=== PATIENT | female | born 1980 | race Two or more races ===

== ENCOUNTER 2024-12-16 17:18 | Inpatient (IN) | payer MEDICAID, OTHER ==
[~2024-12-16] VITALS: Ht 152.4 cm; Wt 65.3 kg
--- NOTE | 2024-12-16 18:37 | DVH ---
INDICATION: cp TECHNIQUE: Frontal view of the chest. COMPARISON: None FINDINGS: Finding:. The heart and mediastinal contours are grossly unremarkable. There is no evidence of pleur al disease. The lungs are clear. The bony structures of the chest are intact without fracture. IMPRESSION: 1. No evidence of acute disease.
--- NOTE | 2024-12-16 18:59 | ED.PDOC ---
HPI Comments 44 y/o F, BIBA, with PMHx of HTN and hyperthyroidism presents to the ED for CC of chest pain. EMS reports, patient is coming from dialysis center where she complains of substernal chest pain onset, 1500 today (12/16/24). Patient states, chest pain to be non-radiating and pressure like in nature. Patient denies palpitations, shortness of breath, weakness, leg swelling, or headache. No other symptoms or modifying factors present at this time. Chief Complaint: Chest Pain Time Seen by MD: 18:20 Reviewed Notes: Nurses Notes, [employer] Worker Notes, Medications, Allergies Allergies: Coded Allergies: NO KNOWN ALLERGIES (Unverified , 12/16/24) Information Source: Patient, Emergency Med Personnel Mode of Arrival: EMS Severity: Moderate Timing: Hours Duration: Since onset Prehospital treatment: None Location: Substernal Radiation: No Radiation Quality: Pressure Onset: At Rest Cardiac Risk Factors: HTN, None PE Risk Factors: None History of: None Modifying Factors: Nothing Associated Signs and Symptoms: None Past Medical History PAST MEDICAL HISTORY: CKF, HTN, Thyroid Surgical History: Denies all surgeries CASHIER ASSOCIATE History: Denies all CASHIER ASSOCIATE Hx Family History Family History: Unknown Social History Smoker: Non-Smoker Alcohol: Denies ETOH Use Drugs: Denies Drug Use Lives In: Home Constitutional: denies: chills, diaphoresis, fatigue, fever, malaise, sweats, weakness, others EENTM: denies: blurred vision, double vision, ear bleeding, ear discharge, ear drainage, ear pain, ear ringing, eye pain, eye redness, hearing loss, mouth pain, mouth swelling, nasal discharge, nose bleeding, nose congestion, nose pain, photophobia, tearing, throat pain, throat swelling, voice changes, others Respiratory: denies: cough, hemoptysis, orthopnea, SOB at rest, shortness of breath, SOB with excertion, stridor, wheezing, others Cardiovascular: reports: chest pain; denies: dizzy spells, diaphoresis, Dyspnea on exertion, edema, irregular heart beat, left arm pain, lightheadedness, palpitations, PND, syncope, others Gastrointestinal: denies: abdomen distended, abdominal pain, blood streaked bowels, constipated, diarrhea, dysphagia, difficulty swallowing, hematemesis, melena, nausea, poor appetite, poor fluid intake, rectal bleeding, rectal pain, vomiting, others Genitourinary: denies: abnormal vagina bleeding, burning, dyspareunia, dysuria, flank pain, frequency, hematuria, incontinence, pain, , vagina discharge, urgency, others Neurological: denies: dizziness, fainting, headache, left sided numbness, left sided weakness, numbness, paresthesia, pre-existing deficit, right sided numbness, right sided weakness, seizure, speech problems, tingling, tremors, weakness, others Musculoskeletal: denies: back pain, gout, joint pain, joint swelling, muscle pain, muscle stiffness, neck pain, others Integumetry: denies: bruises, change in color, change in hair/nails, dryness, laceration, lesions, lumps, rash, wounds, others Allergic/Immunocompromised: denies: Difficulty Healing, Frequent Infections, Hives, Itching, others Hematologic/Lymphatic: denies: anemia, blood clots, easy bleeding, easy bruising, swollen glands, others Endocrine: denies: excessive hunger, excessive sweating, excessive thirst, excessive urination, flushing, intolerance to cold, intolerance to heat, unexplained weight gain, unexplained weight loss, others Psychiatric: denies: anxiety, bipolar disorder, depression, hopeless, panic disorder, schizophrenia, sleepless, suicidal, others All Other Systems: Reviewed and Negative Physical Exam General Appearance: No Apparent Distress, Normal HEENT: Normal ENT Inspection, Pharynx Normal Neck: Full Range of Motion, Non-Tender, Normal, Normal Inspection Respiratory: Chest Non-Tender, Lungs Clear, No Accessory Muscle Use, No Respiratory Distress, Normal Breath Sounds Cardiovascular: No Edema, No Murmur, No Gallop, Normal Peripheral Pulses, Regular Rate/Rhythm Breast Exam: Deferred Gastrointestinal: No Organomegaly, Non Tender, No Pulsatile Mass, Normal Bowel Sounds, Soft Genitalia: Deferred Pelvic: Deferred Rectal: Deferred Extremities: No calf tenderness, Normal capillary refill, Normal inspection, Normal range of motion, Non-tender, No pedal edema Musculoskeletal : Apperance: Normal Neurologic: Alert, body bumper II-XII nml as Tested, No Motor Deficits, Normal Affect, Normal Mood, No Sensory Deficits Cerebellar Function: Normal Reflexes: Normal Skin: Dry, Normal Color, Warm Lymphatic: No Adenopathy Was a procedure done? Was a procedure done?: No CP Differential Dx Differential Diagnosis: Angina, Anxiety / Panic Attack, MS Differential Diagnosis: HTN Essential, HTN Accelerated Differential Diagnosis: Angina, Aortic dissection, Chest Wall Pain, Costochondritis, Esophageal reflux/spasm, Gastritis, Myocardial Infarction, Pericarditis, Pneumonia, Pneumothorax, Pulmonary Embolus X-Ray, Labs, Meds, VS Vital Signs Date Time Temp Pulse Resp B/P (MAP) Pulse Ox O2 Delivery O2 Flow Rate FiO2 12/16/24 20:18 98.7 76 16 162/86 (111) 99 98.7 12/16/24 18:40 70 12/16/24 17:20 77 12/16/24 17:20 98.6 76 16 152/94 (113) 98 98.6 Lab Test 12/16/24 18:21 12/16/24 17:30 Range/Units Troponin I High Sensitivity 43 *H 43 *H </=34 ng/L White Blood Count 8.0 4.4-10.8 10^3/uL Red Blood Count 3.41 L 4.0-5.20 10^6/uL Hemoglobin 11.4 L 12.2-16.2 g/dL Hematocrit 32.9 L 36.0-46.0 % Mean Corpuscular Volume 96.5 80.0-100.0 fL Mean Corpuscular Hemoglobin 33.4 H 28.0-32.0 pg Mean Corpuscular Hemoglobin Concent 34.6 32.0-36.0 g/dL Red Cell Distribution Width 13.7 11.8-14.3 % Platelet Count 229 140-450 10^3/uL Mean Platelet Volume 9.7 6.9-10.8 fL Neutrophils (%) (Auto) 69.7 37.0-80.0 % Lymphocytes (%) (Auto) 22.0 10.0-50.0 % Monocytes (%) (Auto) 5.7 0.0-12.0 % Eosinophils (%) (Auto) 2.0 0.0-7.0 % Basophils (%) (Auto) 0.6 0.0-2.0 % Neutrophils # (Auto) 5.6 1.6-8.6 10 ^3/uL Lymphocytes # (Auto) 1.8 0.4-5.4 10 ^3/uL Monocytes # (Auto) 0.5 0-1.3 10 ^3/uL Eosinophils # (Auto) 0.2 0-0.8 10 ^3/uL Basophils # (Auto) 0.1 0-0.2 10 ^3/uL Nucleated Red Blood Cells 0.2 % Sodium Level 138 136-145 mmol/L Potassium Level 3.7 3.5-5.1 mmol/L Chloride Level 100 98-107 mmol/L Carbon Dioxide Level 28 20-31 mmol/L Anion Gap 10 5-15 Blood Urea Nitrogen 28 H 9-23 mg/dL Creatinine 4.65 H 0.550-1.02 mg/dL Glomerular Filtration Rate Calc 11 >90 mL/min BUN/Creatinine Ratio 6.0 L 10.0-20.0 Serum Glucose 111 H 74-106 mg/dL Calcium Level 9.2 8.7-10.4 mg/dL [place] [id number] Ph: [phone] DIAGNOSTIC IMAGING Diagnostic Imaging Report : [id number] Signed PATIENT: ANY CUEVAS ACCT: [id number] UNIT: [id number] : 1980 LOC: ER ROOM / BED: / AGE / SEX: 44 / F ADM STATUS: REG ER SERVICE 11 ORDERING PHYSICIAN: ALEX JUAN MD PROCEDURE(s): CXRP - CHEST PORTABLE REASON: cp ORDER NUMBER(s): [id number], ACCESSION NUMBER(s): [id number] INDICATION: cp TECHNIQUE: Frontal view of the chest. COMPARISON: None FINDINGS: Finding:. The heart and mediastinal contours are grossly unremarkable. There is no evidence of pleural disease. The lungs are clear. The bony structures of the chest are intact without fracture. IMPRESSION: 1. No evidence of acute disease. ATED BY: SELVIN ORTEGA MD DICTATED DATE/TIME: 12/16/241833 SIGNED BY: SELVIN ORTEGA MD SIGNED DATE/TIME: 12/16/241833 CC: Time of 1ST Reevaluation: 18:50 Reevaluation 1ST: Unchanged Time of 2ND Reevaluation: 20:31 Reevaluation 2ND: Improved Patient Education/Counseling: Diagnosis, Treatment, Prognosis, Need For Follow Up Family Education/Counseling: No Family Present Additional Information The following tests were ordered, and results were reviewed by me: EKG X3, TROPONIN X3, CBC, BMP I discussed treatment and results with medical personnel and: patient Comprehensive systems review obtained and negative except for what is stated in the HPI. pt does not have a doctor nor insurance to follow up. her symptoms are concerning for unstable angina. i will admit her for further evaluation and treatments Departure 1 Departure Time of Disposition: 20:33 Impression: Primary Impression: Unstable angina Disposition: ADMITTED INPATIENT Admit to: Tele Condition: Serious Discharged With: Self Critical Care Note Critical Care Time?: Yes (55 min-critical care time only) Critical care comment: due to concerns for patient's condition deteriorating, the care required my highest level of attention and readiness to intervene. i assessed the patient's condition, ordered the proper tests and treatments, reassessed for response and reviewed the results. i communicated with medical personnel and formulated a p cleve of care. total critical care time does not include any procedures Stability Stability form required: No Heart Score Heart Score: Heart Score Response (Comments) Value History Moderate Suspicious 1 EKG Repolarization Disturb 1 Age <45 0 Risk Factors 1 or 2 risk factors 1 Troponin 1-2 x's Normal limit 1 Total 4 I personally scribed for ALEX JUAN MD ([email or web address]) on 12/16/24 at 18:59. Electronically submitted by Celia Astorga ([email or web address]). I personally scribed for ALEX JUAN MD ([email or web address]) on 12/16/24 at 19:16. Electronically submitted by Celia Astorga ([email or web address]). ALEX JUAN MD December 16, 2024 18:59
[2024-12-16 19:21] LABS: Basophils # (auto) 0.1 10 ^3/uL (0-0.2); Basophils % (auto) 0.6 % (0.0-2.0); Eosinophils # (auto) 0.2 10 ^3/uL (0-0.8); Hematocrit 32.9 % (36.0-46.0); Hemoglobin 11.4 g/dL (12.2-16.2); Lymphocytes # (auto) 1.8 10 ^3/uL (0.4-5.4); Mean Corpuscular Hemoglobin 33.4 pg (28.0-32.0); Mean Corpuscular Hgb Conc. 34.6 g/dL (32.0-36.0); Mean Corpuscular Volume 96.5 fL (80.0-100.0); Monocytes # (auto) 0.5 10 ^3/uL (0-1.3); Monocytes % (auto) 5.7 % (0.0-12.0); Neutrophils # (auto) 5.6 10 ^3/uL (1.6-8.6); Neutrophils % (auto) 69.7 % (37.0-80.0); Nucleated Red Blood Cells % 0.2 %; Platelet Count (auto) 229 10^3/uL (140-450); Red Blood Cells 3.41 10^6/uL (4.0-5.20); Red Cell Distribution Width 13.7 % (11.8-14.3)
[2024-12-16 19:41] LABS: Chloride 100 mmol/L (98-107); Potassium 3.7 mmol/L (3.5-5.1); Sodium 138 mmol/L (136-145)
[2024-12-16 19:42] LABS: Anion Gap 10 (5-15); Calcium 9.2 mg/dL (8.7-10.4); Carbon Dioxide 28 mmol/L (20-31)
[2024-12-16 19:48] LABS: Blood Urea Nitrogen 28 mg/dL (9-23); Glucose 111 mg/dL (74-106)
[2024-12-16] MEDS ORDERED: NITROGLYCERIN 0.4 MG SL TAB SL PRN (20:45)
[2024-12-16] MEDS ORDERED: cloNIDine HCL 0.1 MG TAB PO PRN (21:15)
--- NOTE | 2024-12-16 21:58 | DVHHP2 ---
History of Present Illness Reason for Visit: Chest pain History of Present Illness 44-year-old female presents for evaluation of chest pain. Patient reports developing substernal pressure-like chest pain with mild shortness for breath while undergoing dialysis today. Denies nausea or vomiting. No cough or fever. No other acute complaints. Past Medical History Hypertension, chronic kidney disease, thyroid Past Surgical History Dialysis access Family History Noncontributory Smoke: No ALCOHOL: none Drugs: None Lives: with Family Review of Systems Review of Systems Review of systems are currently negative otherwise addressed in HPI. Allergies: Coded Allergies: NO KNOWN ALLERGIES (Unverified , 12/16/24) Medications Current Medications Medications Dose Ordered Sig/Tere Route Start Time Stop Time Status Last Admin Dose Admin Nitroglycerin 0.4 mg Q5MINP PRN SL 12/16/24 20:45 Morphine Sulfate 2 mg Q30M PRN IV 12/16/24 20:45 Sevelamer HCl 800 mg TIDWM PO 12/17/24 08:00 Amlodipine Besylate 10 mg DAILY PO 12/17/24 10:00 Aspirin 81 mg DAILY PO 12/17/24 10:00 Atorvastatin Calcium 10 mg HS PO 12/16/24 22:00 Clonidine HCl 0.1 mg Q6HP PRN PO 12/16/24 21:15 Ondansetron HCl 4 mg Q4HP PRN IV 12/16/24 21:15 Acetaminophen 650 mg Q6HP PRN PO 12/16/24 21:15 Exam Vital Signs Vital Signs Date Time Temp Pulse Resp B/P (MAP) Pulse Ox O2 Delivery O2 Flow Rate FiO2 12/16/24 20:18 98.7 76 16 162/86 (111) 99 98.7 Exam Gen: 44-year-old female in no apparent distress. Skin: Warm, dry, normal color and texture, no rash. HEENT: Normocephalic atraumatic, mucous membranes moist and pink. Neck: Cervical and supraclavicular nodes normal without enlargement, trachea is midline, thyroid gland is normal without masses. Pulmonary: Clear to auscultation and percussion bilaterally. Cardiac: Regular rate and rhythm. No murmur Abdomen: Soft, nontender, nondistended, bowel sounds present all 4 quadrants, no guarding, no rigidity, no organomegaly. Extremities: No cyanosis, clubbing, no edema Neuro: Cranial nerves II through XII grossly intact, normal affect and speech, no focal motor deficits. Labs/Xrays ORDERING PHYSICIAN: ALEX JUAN MD PROCEDURE(s): CXRP - CHEST PORTABLE REASON: cp ORDER NUMBER(s): [id number], ACCESSION NUMBER(s): [id number] INDICATION: cp TECHNIQUE: Frontal view of the chest. COMPARISON: None FINDINGS: Finding:. The heart and mediastinal contours are grossly unremarkable. There is no evidence of pleural disease. The lungs are clear. The bony structures of the chest are intact without fracture. IMPRESSION: 1. No evidence of acute disease. Labs Test 12/16/24 18:21 12/16/24 17:30 Range/Units Troponin I High Sensitivity 43 *H </=34 ng/L White Blood Count 8.0 4.4-10.8 10^3/uL Red Blood Count 3.41 L 4.0-5.20 10^6/uL Hemoglobin 11.4 L 12.2-16.2 g/dL Hematocrit 32.9 L 36.0-46.0 % Mean Corpuscular Volume 96.5 80.0-100.0 fL Mean Corpuscular Hemoglobin 33.4 H 28.0-32.0 pg Mean Corpuscular Hemoglobin Concent 34.6 32.0-36.0 g/dL Red Cell Distribution Width 13.7 11.8-14.3 % Platelet Count 229 140-450 10^3/uL Mean Platelet Volume 9.7 6.9-10.8 fL Neutrophils (%) (Auto) 69.7 37.0-80.0 % Lymphocytes (%) (Auto) 22.0 10.0-50.0 % Monocytes (%) (Auto) 5.7 0.0-12.0 % Eosinophils (%) (Auto) 2.0 0.0-7.0 % Basophils (%) (Auto) 0.6 0.0-2.0 % Neutrophils # (Auto) 5.6 1.6-8.6 10 ^3/uL Lymphocytes # (Auto) 1.8 0.4-5.4 10 ^3/uL Monocytes # (Auto) 0.5 0-1.3 10 ^3/uL Eosinophils # (Auto) 0.2 0-0.8 10 ^3/uL Basophils # (Auto) 0.1 0-0.2 10 ^3/uL Nucleated Red Blood Cells 0.2 % Sodium Level 138 136-145 mmol/L Potassium Level 3.7 3.5-5.1 mmol/L Chloride Level 100 98-107 mmol/L Carbon Dioxide Level 28 20-31 mmol/L Anion Gap 10 5-15 Blood Urea Nitrogen 28 H 9-23 mg/dL Creatinine 4.65 H 0.550-1.02 mg/dL Glomerular Filtration Rate Calc 11 >90 mL/min BUN/Creatinine Ratio 6.0 L 10.0-20.0 Serum Glucose 111 H 74-106 mg/dL Calcium Level 9.2 8.7-10.4 mg/dL Thyroid Stimulating Hormone (TSH) 5.65 H 0.55-4.78 uIU/mL Assessment/Plan Assessment/Plan Assessment Chest pain rule out ACS Elevated troponin End-stage renal disease, dialysis dependent Hypothyroid Plan Admit the patient to telemetry to the hospitalist Nephrology consult Cardiology consult Thyroid panel pending Resume home medications Continue treatment per orders. Plan discussed with: Patient My Orders Orders - PARTHA MENDOZA Procedure Category Date Status Time Admit ADMIT 12/16/24 Transmitted 20:37 Nitroglycerin PHA 12/16/24 In Process Sublingual (Ntrostat 20:45 Morphine Sulfate PHA 12/16/24 In Process Injection 20:45 Stat Ekg For Chest GABRIELA 12/16/24 In Process Pain 20:37 Notify Of Changes GABRIELA 12/16/24 In Process From Base 20:37 Title Closer For GABRIELA 12/16/24 In Process 24 Hours 20:37 Emergency Dysrhythmia GABRIELA 12/16/24 In Process Protocol 20:37 Rhythm Strips Once GABRIELA 12/16/24 In Process Every Shift 20:37 Oxygen By Nasal RT 12/16/24 Transmitted Cannula 20:37 *[facility] CONS 12/16/24 Transmitted -[place] 21:04 Sevelamer (Renagel) PHA 12/17/24 In Process 08:00 Amlodipine Tablet PHA 12/17/24 In Process (Norvasc Tablet) 10:00 Basic Metabolic Panel LAB 12/17/24 Verified 04:00 * Cardiology Consult CONS 12/16/24 Transmitted 21:04 Aspirin Tablet PHA 12/17/24 In Process 10:00 Atorvastatin (Lipitor) PHA 12/16/24 In Process 22:00 Clonidine Hcl Tablet PHA 12/16/24 In Process (Catapres Tablet) 21:15 Renal DIET 12/17/24 Transmitted Standard(2gna,3gk,Lopho) Breakfast Ondansetron Hcl PHA 12/16/24 In Process (Zofran) 21:15 Echo 2d Mode Cardiac US 12/16/24 Logged DOP 21:04 Condition: Fair GABRIELA 12/16/24 In Process 21:04 Acetaminophen Tablet PHA 12/16/24 In Process (Tylenol Tablet) 21:15 Bedrest With Bathroom GABRIELA 12/16/24 In Process Privileg 21:04 Date of Service: December 16, 2024 Billing Provider: PATRHA MENDOZA Common Visit Codes: [id number] INP/OBS CARE (HIGH) PARTHA MENDOZA December 16, 2024 21:58
[2024-12-16 22:25] VITALS: PULSE 74; RESP 16; O2SAT 97
[2024-12-16 22:45] VITALS: BP 134/66; PULSE 70; RESP 16; TEMP 98; O2SAT 99
[2024-12-16 22:48] LABS: LDL Cholesterol 78 mg/dL (< 100)
[2024-12-16 22:49] LABS: Cholesterol 162 mg/dL (< 200); HDL Cholesterol 59 mg/dL (40-59)
[2024-12-16 22:53] LABS: Triglycerides 271 mg/dL (< 150)
[2024-12-16] MEDS ORDERED: LEVO25TA2 PO (23:16)
[2024-12-16] MEDS ORDERED: SEVE800T8 PO (23:22)
[2024-12-16] MEDS ORDERED: FERR1TAB17 PO (23:22)
[2024-12-16] MEDS: ATORVASTATIN 20 MG TAB PO SCH (23:23)
[2024-12-16] MEDS ORDERED: METO50CA PO (23:23)
[2024-12-17] VITALS (7 sets, daily range): BP systolic 109–151; BP diastolic 60–84; PULSE 70–76; RESP 16–20; TEMP 97.1–98.6; O2SAT 95–100
[2024-12-17] MEDS: LEVOTHYROXINE SODIUM 50 MCG TAB PO SCH (06:07)
[2024-12-17 06:39] LABS: Anion Gap 12 (5-15); Carbon Dioxide 27 mmol/L (20-31); Chloride 100 mmol/L (98-107); Potassium 4.3 mmol/L (3.5-5.1); Sodium 139 mmol/L (136-145)
[2024-12-17 06:45] LABS: BUN/Creatinine Ratio 5.1 (10.0-20.0); Glucose 84 mg/dL (74-106)
[2024-12-17 06:54] LABS: Blood Urea Nitrogen 34 mg/dL (9-23); Calcium 8.7 mg/dL (8.7-10.4)
[2024-12-17] MEDS: SEVELAMER 800 MG TAB PO SCH (08:29)
[2024-12-17] MEDS: ASPirin 81 mg TAB PO SCH (09:27)
[2024-12-17] MEDS: amLODIPine BESYLATE 5 MG TAB PO SCH (09:29)
--- NOTE | 2024-12-17 10:18 | DVHINCON2 ---
Date of service: December 17, 2024 Referring Physician Luis Chou, nurse practitioner Reason for Consultation End-stage renal disease to manage hemodialysis History of Present Illness Patient is a 44-year-old female with past medical history of end-stage renal disease on hemodialysis every Monday and Monday, hypertension and hypothyroidism who was admitted from the dialysis center on Monday for chest pain. On admission Nephrology is consulted to manage her hemodialysis Past Medical History End-stage renal disease, hypertension, hypothyroidism Past Surgical History Left upper arm AV fistula Allergies: Coded Allergies: NO KNOWN ALLERGIES (Unverified , 12/16/24) Home Meds Reported Medications Metoprolol Succinate (Kapspargo Sprinkle) 50 Mg Cap, 50 MG PO, CAP 12/16/24 Ferric Citrate (Auryxia) 210 Mg Tab, 210 MG PO, TAB 12/16/24 Sevelamer Carbonate (Renvela) 800 Mg Tab, 800 MG PO, TAB 12/16/24 Levothyroxine Sodium (Synthroid) 25 Mcg Tab, 10 TAB PO DAILY, #30 TAB 5 Refills 12/16/24 Current Medications Current Medications Medications (Trade) Dose Ordered Sig/Tere Route PRN Reason Start Time Stop Time Status Last Admin Nitroglycerin (Ntrostat Sublingual) 0.4 mg Q5MINP PRN SL FOR CHEST PAIN 12/16/24 20:45 Morphine Sulfate 2 mg Q30M PRN IV FOR CHEST PAIN 12/16/24 20:45 Sevelamer HCl (Renagel) 800 mg TIDWM PO 12/17/24 08:00 12/17/24 08:29 Amlodipine Besylate (Norvasc Tablet) 10 mg DAILY PO 12/17/24 10:00 12/17/24 09:29 Aspirin 81 mg DAILY PO 12/17/24 10:00 12/17/24 09:27 Atorvastatin Calcium (Lipitor) 10 mg HS PO 12/16/24 22:00 12/16/24 23:23 Clonidine HCl (Catapres Tablet) 0.1 mg Q6HP PRN PO SBP>160 12/16/24 21:15 Ondansetron HCl (Zofran) 4 mg Q4HP PRN IV NAUSEA / VOMITING 12/16/24 21:15 Acetaminophen (Tylenol Tablet) 650 mg Q6HP PRN PO PAIN SCALE 1-3 OR TEMP>100.4 12/16/24 21:15 Levothyroxine Sodium (Synthroid Tablet) 50 mcg QAM@0600 PO 12/17/24 06:00 12/17/24 06:07 Family History: Hypertension G8 MOTHER H&P Exam Vital Signs/I&O Vital Sign Date Time Temp Pulse Resp B/P (MAP) Pulse Ox O2 Delivery O2 Flow Rate FiO2 12/17/24 09:29 133/74 12/17/24 05:00 98.0 70 17 98 98.0 12/16/24 22:45 Room Air* 0 21 Intake and Output 12/16/24 12/17/24 19:00 07:00 Intake Total 100 ml Output Total 80 ml Balance 20 ml Intake Oral 100 ml Output Urine Total 80 ml Physical Exam Patient lying comfortably in bed Lungs clear to auscultation bilaterally Cardiac exam regular rate and rhythm GI soft nontender normal Extremities no clubbing cyanosis or edema Neuro nonfocal Labs/Diagnostic Data Labs/Diagnostic Data Laboratory Tests Test 12/17/24 04:39 12/16/24 18:21 12/16/24 17:30 Range/Units Sodium Level 139 138 136-145 mmol/L Potassium Level 4.3 3.7 3.5-5.1 mmol/L Chloride Level 100 100 98-107 mmol/L Carbon Dioxide Level 27 28 20-31 mmol/L Anion Gap 12 10 5-15 Blood Urea Nitrogen 34 H 28 H 9-23 mg/dL Creatinine 6.64 #H 4.65 H 0.550-1.02 mg/dL Glomerular Filtration Rate Calc 7 11 >90 mL/min BUN/Creatinine Ratio 5.1 L 6.0 L 10.0-20.0 Serum Glucose 84 111 H 74-106 mg/dL Calcium Level 8.7 9.2 8.7-10.4 mg/dL Troponin I High Sensitivity 43 *H 43 *H </=34 ng/L White Blood Count 8.0 4.4-10.8 10^3/uL Red Blood Count 3.41 L 4.0-5.20 10^6/uL Hemoglobin 11.4 L 12.2-16.2 g/dL Hematocrit 32.9 L 36.0-46.0 % Mean Corpuscular Volume 96.5 80.0-100.0 fL Mean Corpuscular Hemoglobin 33.4 H 28.0-32.0 pg Mean Corpuscular Hemoglobin Concent 34.6 32.0-36.0 g/dL Red Cell Distribution Width 13.7 11.8-14.3 % Platelet Count 229 140-450 10^3/uL Mean Platelet Volume 9.7 6.9-10.8 fL Neutrophils (%) (Auto) 69.7 37.0-80.0 % Lymphocytes (%) (Auto) 22.0 10.0-50.0 % Monocytes (%) (Auto) 5.7 0.0-12.0 % Eosinophils (%) (Auto) 2.0 0.0-7.0 % Basophils (%) (Auto) 0.6 0.0-2.0 % Neutrophils # (Auto) 5.6 1.6-8.6 10 ^3/uL Lymphocytes # (Auto) 1.8 0.4-5.4 10 ^3/uL Monocytes # (Auto) 0.5 0-1.3 10 ^3/uL Eosinophils # (Auto) 0.2 0-0.8 10 ^3/uL Basophils # (Auto) 0.1 0-0.2 10 ^3/uL Nucleated Red Blood Cells 0.2 % Triglycerides Level 271 H < 150 mg/dL Cholesterol Level 162 < 200 mg/dL LDL Cholesterol 78 < 100 mg/dL HDL Cholesterol 59 40-59 mg/dL Thyroid Stimulating Hormone (TSH) 5.65 H 0.55-4.78 uIU/mL Assessment End-stage renal disease on hemodialysis Chest pain rule out acute coronary syndrome Elevated troponin Hypertension Hypothyroidism Anemia of chronic kidney disease, well compensated Recommendations Hemodialysis tomorrow Resume home medications Renal diet Blood pressure control Cardiology consult We will continue to follow Patient seen and examined by myself in the emergency room. I discussed my plan of care with the patient and primary nurse at the bedside I would like to thank Luis for the consult, will follow up Plan discussed with: Patient KIM RHODES MD December 17, 2024 10:18
[2024-12-17 11:05] LABS: Magnesium 2.3 mg/dL (1.6-2.6)
[2024-12-17 11:06] LABS: Phosphorus 4.2 mg/dL (2.4-5.1)
--- NOTE | 2024-12-17 11:24 | DVHINCON2 ---
Date Seen: December 17, 2024 Referring Physician SHAGGY Chou Reason for Consultation Chest pain History of Present Illness This is a 44-year-old female patient who presents to the emergency room with chief complaint of chest pain that began on day of admission. Patient states that she was being dialyzed when suddenly she began to feel the chest pain. She describes it as unprovoked, constant, pressure-like in nature, midsternal and nonradiating. Associated symptoms include shortness of breath. Initial twelve lead electrocardiogram reveals normal sinus rhythm nonspecific ST segment changes to inferior leads and inferior Q-waves. Initial troponin level of 43ng/L. Significant past medical history includes hypertension, thyroid disease, and end-stage renal disease on hemodialysis. The patient denies any previous cardiac workup. Past Medical History Past medical history reviewed. No other significant than mentioned above. Past Surgical History Left arm fistula Hysterectomy Family History: Hypertension G8 MOTHER Family History Family history reviewed. Social History Denies the use of tobacco, alcohol or illicit drugs. Allergies: Coded Allergies: NO KNOWN ALLERGIES (Unverified , 12/16/24) Home Meds Reported Medications Metoprolol Succinate (Kapspargo Sprinkle) 50 Mg Cap, 50 MG PO, CAP 12/16/24 Ferric Citrate (Auryxia) 210 Mg Tab, 210 MG PO, TAB 12/16/24 Sevelamer Carbonate (Renvela) 800 Mg Tab, 800 MG PO, TAB 12/16/24 Levothyroxine Sodium (Synthroid) 25 Mcg Tab, 10 TAB PO DAILY, #30 TAB 5 Refills 12/16/24 Home Meds Home medications reviewed. Current Medications Current Medications Medications (Trade) Dose Ordered Sig/Tere Route PRN Reason Start Time Stop Time Status Last Admin Nitroglycerin (Ntrostat Sublingual) 0.4 mg Q5MINP PRN SL FOR CHEST PAIN 12/16/24 20:45 Morphine Sulfate 2 mg Q30M PRN IV FOR CHEST PAIN 12/16/24 20:45 Sevelamer HCl (Renagel) 800 mg TIDWM PO 12/17/24 08:00 12/17/24 08:29 Amlodipine Besylate (Norvasc Tablet) 10 mg DAILY PO 12/17/24 10:00 12/17/24 09:29 Aspirin 81 mg DAILY PO 12/17/24 10:00 12/17/24 09:27 Atorvastatin Calcium (Lipitor) 10 mg HS PO 12/16/24 22:00 12/16/24 23:23 Clonidine HCl (Catapres Tablet) 0.1 mg Q6HP PRN PO SBP>160 12/16/24 21:15 Ondansetron HCl (Zofran) 4 mg Q4HP PRN IV NAUSEA / VOMITING 12/16/24 21:15 Acetaminophen (Tylenol Tablet) 650 mg Q6HP PRN PO PAIN SCALE 1-3 OR TEMP>100.4 12/16/24 21:15 Levothyroxine Sodium (Synthroid Tablet) 50 mcg QAM@0600 PO 12/17/24 06:00 12/17/24 06:07 Review of Systems Constitutional: No symptom reported Ears, Nose, & Throat: No symptom reported Eyes: No symptom reported Neurological: No symptoms reported Pulmonary/Respiratory: Shortness of breath Cardiovascular: Chest pain Gastrointestinal: No symptom reported Genitourinary: No symptom reported Musculoskeletal: No symptom reported Skin: No symptom reported Psychiatric: No symptom reported Endocrine: No symptom reported Hematologic/Lymphatic: No symptom reported Vital Signs Vital Signs Date Time Temp Pulse Resp B/P (MAP) Pulse Ox O2 Delivery O2 Flow Rate FiO2 12/17/24 09:29 133/74 12/17/24 05:00 98.0 70 17 98 98.0 12/16/24 22:45 Room Air* 0 21 Physical Exam General Appearance: Cooperative. Well-developed. Well-nourished. No acute distress. Pulmonary/Respiratory: Clear, bilateral breaths sounds. Cardiovascular/Chest: Regular rate and rhythm. Peripheral Pulses: 2+ Radial (R). 2+ Radial (L). 2+ Pedal (R). 2+ Pedal (L) Abdominal Exam: Normal bowel sounds. Ankle Exam: Negative ankle edema Lower extremities: Negative lower extremity edema Neuro/Mental Status: A/OX4, coherent. Thoughts/Psych: Normal thought pattern. Appropriate mood and affect. Good judgme nt and insight. Appearance: No acute distress. Skin Exam: Normal inspection. Normal color. Warm and dry. Labs/Diagnostic Data Labs Test 12/17/24 04:39 12/16/24 18:21 12/16/24 17:30 Range/Units Sodium Level 139 136-145 mmol/L Potassium Level 4.3 3.5-5.1 mmol/L Chloride Level 100 98-107 mmol/L Carbon Dioxide Level 27 20-31 mmol/L Anion Gap 12 5-15 Blood Urea Nitrogen 34 H 9-23 mg/dL Creatinine 6.64 #H 0.550-1.02 mg/dL Glomerular Filtration Rate Calc 7 >90 mL/min BUN/Creatinine Ratio 5.1 L 10.0-20.0 Serum Glucose 84 74-106 mg/dL Calcium Level 8.7 8.7-10.4 mg/dL Phosphorus Level 4.2 2.4-5.1 mg/dL Magnesium Level 2.3 1.6-2.6 mg/dL Vitamin D 25-Hydroxy 39.5 30.0-100 ng/mL Thyroid Stimulating Hormone (TSH) 8.95 H 0.55-4.78 uIU/mL Free Thyroxine (T4) Calculated 0.88 L 0.89-1.76 ng/dL Parathyroid Hormone (Intact) 598.0 H 18.4-80.1 pg/mL Troponin I High Sensitivity 43 *H </=34 ng/L White Blood Count 8.0 4.4-10.8 10^3/uL Red Blood Count 3.41 L 4.0-5.20 10^6/uL Hemoglobin 11.4 L 12.2-16.2 g/dL Hematocrit 32.9 L 36.0-46.0 % Mean Corpuscular Volume 96.5 80.0-100.0 fL Mean Corpuscular Hemoglobin 33.4 H 28.0-32.0 pg Mean Corpuscular Hemoglobin Concent 34.6 32.0-36.0 g/dL Red Cell Distribution Width 13.7 11.8-14.3 % Platelet Count 229 140-450 10^3/uL Mean Platelet Volume 9.7 6.9-10.8 fL Neutrophils (%) (Auto) 69.7 37.0-80.0 % Lymphocytes (%) (Auto) 22.0 10.0-50.0 % Monocytes (%) (Auto) 5.7 0.0-12.0 % Eosinophils (%) (Auto) 2.0 0.0-7.0 % Basophils (%) (Auto) 0.6 0.0-2.0 % Neutrophils # (Auto) 5.6 1.6-8.6 10 ^3/uL Lymphocytes # (Auto) 1.8 0.4-5.4 10 ^3/uL Monocytes # (Auto) 0.5 0-1.3 10 ^3/uL Eosinophils # (Auto) 0.2 0-0.8 10 ^3/uL Basophils # (Auto) 0.1 0-0.2 10 ^3/uL Nucleated Red Blood Cells 0.2 % Triglycerides Level 271 H < 150 mg/dL Cholesterol Level 162 < 200 mg/dL LDL Cholesterol 78 < 100 mg/dL HDL Cholesterol 59 40-59 mg/dL Assessment Chest pain, rule out coronary ischemia Rule out structural heart disease Hypertension Hypertriglyceridemia, newly diagnosed Thyroid disease End-stage renal disease on hemodialysis Plan/Recommendation We will continue with the following plan/recommendations (Dr. Montemayor): * Transthoracic echocardiogram to evaluate cardiac function * Chest pain protocol * VIJAY score: 2 points * HEART score: 4 points * Single antiplatelet therapy and lipid-lowering agent * Close Cardiac surveillance * Nuclear stress test Thank you for allowing us to care for this patient. Please call with any questions or concerns. Critical care time spent: 41 minutes This medical document was created using an electronic medical record system with voice recognition software and computerized dictation system. Although this document has been carefully reviewed, there might still be some phonetic and typographical errors. Occasional wrong-word or ``sound-alike substitutions may have occurred due to the inherent limitations of voice recognition software. These areas are purely typographical due to imperfections of the software programs and do not reflect any compromise in the patient's medical care. Please read the chart carefully and recognize, using context, where these substitutions have occurred. Plan discussed with: Patient NYHA Physical activity limitations: NA Date of Service: December 17, 2024 Billing Provider: DUDLEY PEARCE Cardiology Common Codes: [id number] INP/OBS CARE (High) Cardiology Consultation Codes: [id number] CONSULT <45MIN DUDLEY PEARCE December 17, 2024 11:24
[2024-12-17] MEDS: ONDANSETRON HCL 4 MG/2 ML VIAL IV PRN (13:28)
[2024-12-17] MEDS: MORPHINE SULFATE INJ 2 MG/ml SYRG IV PRN (13:37)
--- NOTE | 2024-12-17 13:54 | DVHPN2 ---
Subjective 44-year-old female with a history of end-stage renal disease, hypertension, hypothyroidism came with a chief complaint of chest pain for about 1 day while she was having dialysis yesterday She is still having chest pain as if this morning, 2nd EKG was done shows no changes Troponin was slightly elevated at 43 x2 Changes from previous H/P or p: Changes Objective Vitals Vital Signs Date Time Temp Pulse Resp B/P (MAP) Pulse Ox O2 Delivery O2 Flow Rate FiO2 12/17/24 13:37 75 14 123/76 12/17/24 13:19 98.6 96 98.6 12/16/24 22:45 Room Air* 0 21 Intake/Output Intake and Output 12/17/24 07:00 Intake Total 100 ml Output Total 80 ml Balance 20 ml Intake Oral 100 ml Output Urine Total 80 ml General Appearance: Alert, Oriented X3, Cooperative, No acute distress Lungs: Clear to auscultation, Normal air movement Cardiovascular: Regular rate, Normal S1, Normal S2 Abdomen: Normal bowel sounds, Soft, No tenderness Extremities: No edema Medications Current Medications Medications Dose Ordered Sig/Tere Route Start Time Stop Time Status Last Admin Dose Admin Nitroglycerin 0.4 mg Q5MINP PRN SL 12/16/24 20:45 Morphine Sulfate 2 mg Q30M PRN IV 12/16/24 20:45 12/17/24 13:37 2 MG Sevelamer HCl 800 mg TIDWM PO 12/17/24 08:00 12/17/24 12:23 800 MG Amlodipine Besylate 10 mg DAILY PO 12/17/24 10:00 12/17/24 09:29 10 MG Aspirin 81 mg DAILY PO 12/17/24 10:00 12/17/24 09:27 81 MG Atorvastatin Calcium 10 mg HS PO 12/16/24 22:00 12/16/24 23:23 10 MG Clonidine HCl 0.1 mg Q6HP PRN PO 12/16/24 21:15 Ondansetron HCl 4 mg Q4HP PRN IV 12/16/24 21:15 12/17/24 13:28 4 MG Acetaminophen 650 mg Q6HP PRN PO 12/16/24 21:15 Levothyroxine Sodium 50 mcg QAM@0600 PO 12/17/24 06:00 12/17/24 06:07 50 MCG Laboratory Results Laboratory Tests 12/16/24 17:30 12/17/24 04:39 Chemistry Test 12/16/24 17:30 12/17/24 04:39 Calcium Level 9.2 mg/dL (8.7-10.4) 8.7 mg/dL (8.7-10.4) Magnesium Level 2.3 mg/dL (1.6-2.6) Phosphorus Level 4.2 mg/dL (2.4-5.1) Lipid panel Test 12/16/24 17:30 Cholesterol Level 162 mg/dL (< 200) HDL Cholesterol 59 mg/dL (40-59) Triglycerides Level 271 mg/dL (< 150) H HgA1c, TSH Test 12/16/24 17:30 12/17/24 04:39 Thyroid Stimulating Hormone (TSH) 5.65 uIU/mL (0.55-4.78) H 8.95 uIU/mL (0.55-4.78) H Assessment/Plan Assessment/Plan Chest pain rule out ACS End-stage renal disease on hemodialysis Hypothyroidism, uncontrolled Hypertension Hyperparathyroidism, secondary versus tertiary Plan Telemetry Aspirin Lipitor Nephrology consult for dialysis Continue levothyroxine Echocardiogram Cardiology consult Monitor closely The rest of the management will depend on the hospital course Plan discussed with: Patient Date of Service: December 17, 2024 Billing Provider: AYDEE SANTOS MD Common Visit Codes: [id number] INP/OBS CARE(HIGH) AYDEE SANTOS MD December 17, 2024 13:54
[2024-12-17] MEDS: ATORVASTATIN 20 MG TAB PO SCH (21:41)
[2024-12-18] VITALS (8 sets, daily range): BP systolic 117–144; BP diastolic 69–94; PULSE 72–88; RESP 18–20; TEMP 96.3–98.4; O2SAT 96–99
[2024-12-18 06:27] LABS: Anion Gap 12 (5-15); Carbon Dioxide 24 mmol/L (20-31); Chloride 102 mmol/L (98-107); Sodium 138 mmol/L (136-145)
[2024-12-18 06:32] LABS: BUN/Creatinine Ratio 5.6 (10.0-20.0); Glucose 88 mg/dL (74-106)
[2024-12-18 06:34] LABS: Blood Urea Nitrogen 51 mg/dL (9-23)
[2024-12-18] MEDS ORDERED: SODIUM CHL 0.9% 1000 ML BAG XX ONE (07:00)
[2024-12-18] MEDS: REGADENOSON 0.4 MG/5 ML SYRG IV ONE ×2 (08:07→08:19)
[2024-12-18 09:07] LABS: Free Thyroxine Index 1.8 (1.2-4.9); Thyroxine (T4) 8.4 ug/dL (4.5-12.0)
--- NOTE | 2024-12-18 11:04 | DVHPN2 ---
Progress Note Date Seen: December 18, 2024 Medical Necessity Reason Pt with a Central, PICC or Fol: No Subjective Patient reports: No new complaints Other Systems: Seen and examined by myself today in follow-up, patient examined hemodialysis, blood pressure stable Objective vital signs Vital Sign Date Time Temp Pulse Resp B/P (MAP) Pulse Ox O2 Delivery O2 Flow Rate FiO2 12/18/24 09:00 98.0 73 18 144/94 (111) 99 98.0 12/18/24 08:00 Room Air* 0 21 Total Intake and Output 12/17/24 12/17/24 12/18/24 15:00 23:00 07:00 Intake Total 700 ml Output Total 250 ml Balance 450 ml medications Current Medications Medications Dose Ordered Sig/Tere Route Start Time Stop Time Status Last Admin Dose Admin Nitroglycerin 0.4 mg Q5MINP PRN SL 12/16/24 20:45 Morphine Sulfate 2 mg Q30M PRN IV 12/16/24 20:45 12/17/24 13:37 2 MG Sevelamer HCl 800 mg TIDWM PO 12/17/24 08:00 12/18/24 08:02 800 MG Amlodipine Besylate 10 mg DAILY PO 12/17/24 10:00 12/17/24 09:29 10 MG Aspirin 81 mg DAILY PO 12/17/24 10:00 12/17/24 09:27 81 MG Clonidine HCl 0.1 mg Q6HP PRN PO 12/16/24 21:15 Ondansetron HCl 4 mg Q4HP PRN IV 12/16/24 21:15 12/17/24 13:28 4 MG Acetaminophen 650 mg Q6HP PRN PO 12/16/24 21:15 Levothyroxine Sodium 50 mcg QAM@0600 PO 12/17/24 06:00 12/18/24 05:08 50 MCG Atorvastatin Calcium 40 mg HS PO 12/17/24 22:00 12/17/24 21:41 40 MG laboratory and microbiology Laboratory Tests 12/18/24 05:15 12/16/24 17:30 Test 12/18/24 05:15 Range/Units Serum Glucose 88 74-106 mg/dL Problem List/Assessment/Plan Problem List/Assessment/Plan End-stage renal disease on hemodialysis Chest pain rule out acute coronary syndrome Elevated troponin Hypertension Hypothyroidism Anemia of chronic kidney disease, well compensated Secondary hyperparathyroidism Recommendations Continue with UF 2 L as tolerated Resume home medications Renal diet Blood pressure control Calcitriol 0.25 mcg p.o. q.day Cardiology consult We will continue to follow Plan discussed with: Patient KIM RHODES MD December 18, 2024 11:04
--- NOTE | 2024-12-18 12:04 | DVHSR ---
APPROVED REPORT Exam: Nuclear Stress Test BMI: 0 Stress Test Details HR Max Heart Rate (APMHR): 177.996922 bpm Target HR (85% APMHR): 150.067741 bpm BP ECG Stress ECG Conclusion anterior wall reversible ischemia lvef 58% abnormal study NM EXAM: Myocardial Perfusion REST/STRESS Imaging Protocol: Rest Tc-99m/Stress Tc-99m 2 days Resting Data Rest SPECT myocardial perfusion imaging was performed in supine position 60 minutes following the int ravenous injection of 15.2 mCi of Tc-99m Sestamibi. Time of rest injection: 15:46 Date: 12/17/2024 Time of rest imagin:46 Date: 12/17/2024 Administration Route: IV Administration Site: Left Arm Pharmacologic Stress Pharmacologic stress test was performed by injecting Regadenoson 0.4 mg IV push followed by the intra venous injection of 25.1 mCi of Tc-99m Sestamibi. Time of stress injection: 08:21 Date: 12/18/2024 Time of stress imagin:21 Date: 12/18/2024 Administration Route: IV Administration Site: Left Arm The images were gated to evaluate regional wall motion and calculate left ventricular ejection fracti on. Stress only was performed in the Supine position. Comments TWO DAY STUDY REST STUDY PERFORMED ON 12/17/2024 STRESS STUDY PERFORMED 12/18/2024 Nuclear Conclusion Nuclear Findings: positive for ischemia anterior wall reversible ischemia lvef 58% abnormal study
[2024-12-18] MEDS: CALCITRIOL 0.25 MCG CAP PO SCH (12:14)
--- NOTE | 2024-12-18 21:09 | DVHPN2 ---
Subjective Stress test was abnormal Changes from previous H/P or p: Changes Objective Vitals Vital Signs Date Time Temp Pulse Resp B/P (MAP) Pulse Ox O2 Delivery O2 Flow Rate FiO2 12/18/24 20:00 Room Air* 0 21 12/18/24 16:36 98.4 76 19 117/69 (85) 96 98.4 Intake/Output Intake and Output 12/18/24 07:00 Intake Total 700 ml Output Total 250 ml Balance 450 ml Intake Oral 700 ml Output Urine Total 250 ml General Appearance: Alert, Oriented X3, Cooperative, No acute distress Lungs: Clear to auscultation, Normal air movement Cardiovascular: Regular rate, Normal S1, Normal S2 Abdomen: Normal bowel sounds, Soft, No tenderness Extremities: No edema Medications Current Medications Medications Dose Ordered Sig/Tere Route Start Time Stop Time Status Last Admin Dose Admin Nitroglycerin 0.4 mg Q5MINP PRN SL 12/16/24 20:45 Morphine Sulfate 2 mg Q30M PRN IV 12/16/24 20:45 12/17/24 13:37 2 MG Sevelamer HCl 800 mg TIDWM PO 12/17/24 08:00 12/18/24 18:42 800 MG Amlodipine Besylate 10 mg DAILY PO 12/17/24 10:00 12/17/24 09:29 10 MG Aspirin 81 mg DAILY PO 12/17/24 10:00 12/17/24 09:27 81 MG Clonidine HCl 0.1 mg Q6HP PRN PO 12/16/24 21:15 Ondansetron HCl 4 mg Q4HP PRN IV 12/16/24 21:15 12/17/24 13:28 4 MG Acetaminophen 650 mg Q6HP PRN PO 12/16/24 21:15 Levothyroxine Sodium 50 mcg QAM@0600 PO 12/17/24 06:00 12/18/24 05:08 50 MCG Atorvastatin Calcium 40 mg HS PO 12/17/24 22:00 12/17/24 21:41 40 MG Calcitriol 0.5 mcg DAILY PO 12/18/24 11:15 12/18/24 12:14 0.5 MCG Laboratory Results Laboratory Tests 12/16/24 17:30 12/18/24 05:15 Chemistry Test 12/18/24 05:15 Calcium Level 9.0 mg/dL (8.7-10.4) Microbiology Microbiology Date/Time Source Procedure Growth Status 12/17/24 16:16 Nose MRSA Screen - Final Complete Assessment/Plan Assessment/Plan Chest pain rule out ACS End-stage renal disease on hemodialysis Hypothyroidism, uncontrolled Hypertension Hyperparathyroidism, secondary versus tertiary Plan Telemetry Aspirin Lipitor Nephrology consult for dialysis Continue levothyroxine Echocardiogram Cardiology consult Monitor closely The rest of the management will depend on the hospital course 12/18/24: Stress test was abnormal s/p HD Will need a heart cath Plan discussed with: Patient My Orders Orders - AYDEE SANTOS MD Procedure Category Date Status Time Renal DIET 12/18/24 Transmitted Standard(2gna,3gk,Lopho) Lunch Date of Service: December 18, 2024 Billing Provider: AYDEE SANTOS MD Common Visit Codes: [id number] INP/OBS CARE(HIGH) AYDEE SANTOS MD December 18, 2024 21:09
[2024-12-19] VITALS (8 sets, daily range): BP systolic 123–148; BP diastolic 77–89; PULSE 72–94; RESP 16–18; TEMP 97.3–98; O2SAT 91–98
[2024-12-19 07:36] LABS: Basophils # (auto) 0 10 ^3/uL (0-0.2); Basophils % (auto) 0.4 % (0.0-2.0); Eosinophils # (auto) 0.2 10 ^3/uL (0-0.8); Eosinophils % (auto) 2.4 % (0.0-7.0); Hematocrit 36.3 % (36.0-46.0); Hemoglobin 12.4 g/dL (12.2-16.2); Lymphocytes # (auto) 2.1 10 ^3/uL (0.4-5.4); Lymphocytes % (auto) 23.9 % (10.0-50.0); Mean Corpuscular Hemoglobin 33.1 pg (28.0-32.0); Mean Corpuscular Hgb Conc. 34.1 g/dL (32.0-36.0); Monocytes # (auto) 0.7 10 ^3/uL (0-1.3); Monocytes % (auto) 7.9 % (0.0-12.0); Neutrophils # (auto) 5.7 10 ^3/uL (1.6-8.6); Neutrophils % (auto) 65.4 % (37.0-80.0); Platelet Count (auto) 226 10^3/uL (140-450); Red Blood Cells 3.74 10^6/uL (4.0-5.20); Red Cell Distribution Width 13.6 % (11.8-14.3); White Blood Cell 8.8 10^3/uL (4.4-10.8)
[2024-12-19 07:54] LABS: INR 0.97 (0.9-1.15); Partial Thromboplastin Time 28.5 SEC (24.5-34.5); Prothrombin Time 10.3 sec (9.3-11.8)
[2024-12-19 08:02] LABS: Alanine Aminotransferase 10 U/L (7-40); Alkaline Phosphatase 94 U/L (46-116); Anion Gap 14 (5-15); BUN/Creatinine Ratio 5.4 (10.0-20.0); Calcium 9.6 mg/dL (8.7-10.4); Carbon Dioxide 29 mmol/L (20-31); Glucose 93 mg/dL (74-106); Magnesium 2.3 mg/dL (1.6-2.6); Potassium 4.9 mmol/L (3.5-5.1); Sodium 138 mmol/L (136-145)
[2024-12-19 08:03] LABS: Bilirubin, Total 0.3 mg/dL (0.2-1.0)
[2024-12-19 08:06] LABS: Albumin 4.9 g/dL (3.2-4.8); Aspartate Aminotransferase < 8 U/L (13-40); Blood Urea Nitrogen 38 mg/dL (9-23); Chloride 95 mmol/L (98-107)
[2024-12-19 08:23] LABS: Cholesterol 121 mg/dL (< 200); HDL Cholesterol 60 mg/dL (40-59); LDL Cholesterol 49 mg/dL (< 100); Triglycerides 78 mg/dL (< 150)
--- NOTE | 2024-12-19 09:15 | DVHPN2 ---
Progress Note Date Seen: December 19, 2024 Medical Necessity Reason Pt with a Central, PICC or Fol: No Subjective Patient reports: No new complaints Other Systems: Patient seen and examined by myself today in follow-up Objective vital signs Vital Sign Date Time Temp Pulse Resp B/P (MAP) Pulse Ox O2 Delivery O2 Flow Rate FiO2 12/19/24 05:00 97.5 77 17 131/82 (98) 91 97.5 12/18/24 20:00 Room Air* 0 21 Total Intake and Output 12/18/24 12/18/24 12/19/24 15:00 23:00 07:00 Intake Total 560 ml 200 ml Output Total 500 ml Balance 60 ml 200 ml medications Current Medications Medications Dose Ordered Sig/Tere Route Start Time Stop Time Status Last Admin Dose Admin Nitroglycerin 0.4 mg Q5MINP PRN SL 12/16/24 20:45 Morphine Sulfate 2 mg Q30M PRN IV 12/16/24 20:45 12/17/24 13:37 2 MG Sevelamer HCl 800 mg TIDWM PO 12/17/24 08:00 12/19/24 07:54 800 MG Amlodipine Besylate 10 mg DAILY PO 12/17/24 10:00 12/17/24 09:29 10 MG Aspirin 81 mg DAILY PO 12/17/24 10:00 12/17/24 09:27 81 MG Clonidine HCl 0.1 mg Q6HP PRN PO 12/16/24 21:15 Ondansetron HCl 4 mg Q4HP PRN IV 12/16/24 21:15 12/17/24 13:28 4 MG Acetaminophen 650 mg Q6HP PRN PO 12/16/24 21:15 Levothyroxine Sodium 50 mcg QAM@0600 PO 12/17/24 06:00 12/19/24 06:18 50 MCG Atorvastatin Calcium 40 mg HS PO 12/17/24 22:00 12/18/24 21:38 40 MG Calcitriol 0.5 mcg DAILY PO 12/18/24 11:15 12/18/24 12:14 0.5 MCG Examination: LUNGS:Normal, CVS:Normal, MSK:Normal laboratory and microbiology Laboratory Tests 12/19/24 06:32 Test 12/19/24 06:32 Range/Units Serum Glucose 93 74-106 mg/dL Microbiology Date/Time Source Procedure Growth Status 12/17/24 16:16 Nose MRSA Screen - Final Complete Problem List/Assessment/Plan Problem List/Assessment/Plan End-stage renal disease on hemodialysis Chest pain rule out acute coronary syndrome Elevated troponin Hypertension Hypothyroidism Anemia of chronic kidney disease, well compensated Secondary hyperparathyroidism Recommendations Hemodialysis tomorrow Resume home medications Renal diet Decrease amlodipine to 5 mg po q day Calcitriol 0.25 mcg p.o. q.day Cardiology workup in progress We will continue to follow Plan discussed with: Patient, Daughter My Orders My Orders Orders - KIM RHODES MD Procedure Category Date Status Time Calcitriol Capsule PHA 12/18/24 In Process (Rocaltrol Capsule) 11:15 KIM RHODES MD December 19, 2024 09:15
[2024-12-19] MEDS: amLODIPine BESYLATE 5 MG TAB PO SCH (09:55)
--- NOTE | 2024-12-19 10:10 | DVHPN2 ---
Subjective Stress test was abnormal She needs a heart catheterization tomorrow No chest pain Changes from previous H/P or p: Changes Objective Vitals Vital Signs Date Time Temp Pulse Resp B/P (MAP) Pulse Ox O2 Delivery O2 Flow Rate FiO2 12/19/24 09:55 138/89 12/19/24 09:00 97.3 80 16 96 97.3 12/18/24 20:00 Room Air* 0 21 Intake/Output Intake and Output 12/19/24 07:00 Intake Total 760 ml Output Total 500 ml Balance 260 ml Intake Oral 760 ml Output Urine Total 500 ml General Appearance: Alert, Oriented X3, Cooperative, No acute distress Lungs: Clear to auscultation, Normal air movement Cardiovascular: Regular rate, Normal S1, Normal S2 Abdomen: Normal bowel sounds, Soft, No tenderness Extremities: No edema Medications Current Medications Medications Dose Ordered Sig/Tere Route Start Time Stop Time Status Last Admin Dose Admin Nitroglycerin 0.4 mg Q5MINP PRN SL 12/16/24 20:45 Morphine Sulfate 2 mg Q30M PRN IV 12/16/24 20:45 12/17/24 13:37 2 MG Sevelamer HCl 800 mg TIDWM PO 12/17/24 08:00 12/19/24 07:54 800 MG Aspirin 81 mg DAILY PO 12/17/24 10:00 12/19/24 09:54 81 MG Clonidine HCl 0.1 mg Q6HP PRN PO 12/16/24 21:15 Ondansetron HCl 4 mg Q4HP PRN IV 12/16/24 21:15 12/17/24 13:28 4 MG Acetaminophen 650 mg Q6HP PRN PO 12/16/24 21:15 Levothyroxine Sodium 50 mcg QAM@0600 PO 12/17/24 06:00 12/19/24 06:18 50 MCG Atorvastatin Calcium 40 mg HS PO 12/17/24 22:00 12/18/24 21:38 40 MG Calcitriol 0.5 mcg DAILY PO 12/18/24 11:15 12/19/24 09:54 0.5 MCG Amlodipine Besylate 5 mg DAILY PO 12/19/24 09:15 12/19/24 09:55 5 MG Laboratory Results Laboratory Tests 12/19/24 06:32 Chemistry Test 12/19/24 06:32 Albumin 4.9 g/dL (3.2-4.8) H Calcium Level 9.6 mg/dL (8.7-10.4) Magnesium Level 2.3 mg/dL (1.6-2.6) Total Protein 8.0 g/dL (5.7-8.2) Coagulation Test 12/19/24 06:32 Prothrombin Time 10.3 sec (9.3-11.8) Prothrombin Time INR 0.97 (0.9-1.15) Activated Partial Thromboplast Time 28.5 SEC (24.5-34.5) Lipid panel Test 12/19/24 06:32 Cholesterol Level 121 mg/dL (< 200) HDL Cholesterol 60 mg/dL (40-59) H Triglycerides Level 78 mg/dL (< 150) LFT Test 12/19/24 06:32 Alanine Aminotransferase (ALT) 10 U/L (7-40) Alkaline Phosphatase 94 U/L (46-116) Aspartate Amino Transferase (AST) < 8 U/L (13-40) L Total Bilirubin 0.3 mg/dL (0.2-1.0) HgA1c, TSH Test 12/19/24 06:32 Thyroid Stimulating Hormone (TSH) 7.06 uIU/mL (0.55-4.78) H Microbiology Microbiology Date/Time Source Procedure Growth Status 12/17/24 16:16 Nose MRSA Screen - Final Complete Assessment/Plan Assessment/Plan Chest pain rule out ACS End-stage renal disease on hemodialysis Hypothyroidism, uncontrolled Hypertension Hyperparathyroidism, secondary versus tertiary Plan Telemetry Aspirin Lipitor Nephrology consult for dialysis Continue levothyroxine Echocardiogram Cardiology consult Monitor closely The rest of the management will depend on the hospital course 12/18/24: Stress test was abnormal s/p HD Will need a heart cath 12/19/2024: Abnormal stress test: Heart catheterization for tomorrow Hemodialysis as per Nephrology Monitor closely Plan discussed with: Patient My Orders Orders - AYDEE SANTOS MD Procedure Category Date Status Time Renal DIET 12/18/24 Transmitted Standard(2gna,3gk,Lopho) Lunch Date of Service: December 19, 2024 Billing Provider: AYDEE SANTOS MD Common Visit Codes: [id number] INP/OBS CARE(MOD) AYDEE SANTOS MD December 19, 2024 10:10
--- NOTE | 2024-12-19 10:22 | DVHPN2 ---
Consult Progress Note Subjective Other Systems: Patient in normal sinus rhythm on patient sitter. Denies any cardiac symptoms at time of assessment Objective vital signs Vital Sign Date Time Temp Pulse Resp B/P (MAP) Pulse Ox O2 Delivery O2 Flow Rate FiO2 12/19/24 09:55 138/89 12/19/24 09:00 97.3 80 16 96 97.3 12/18/24 20:00 Room Air* 0 21 Total Intake and Output 12/18/24 12/18/24 12/19/24 15:00 23:00 07:00 Intake Total 560 ml 200 ml Output Total 500 ml Balance 60 ml 200 ml medications Current Medications Medications Dose Ordered Sig/Tere Route Start Time Stop Time Status Last Admin Dose Admin Nitroglycerin 0.4 mg Q5MINP PRN SL 12/16/24 20:45 Morphine Sulfate 2 mg Q30M PRN IV 12/16/24 20:45 12/17/24 13:37 2 MG Sevelamer HCl 800 mg TIDWM PO 12/17/24 08:00 12/19/24 07:54 800 MG Aspirin 81 mg DAILY PO 12/17/24 10:00 12/19/24 09:54 81 MG Clonidine HCl 0.1 mg Q6HP PRN PO 12/16/24 21:15 Ondansetron HCl 4 mg Q4HP PRN IV 12/16/24 21:15 12/17/24 13:28 4 MG Acetaminophen 650 mg Q6HP PRN PO 12/16/24 21:15 Levothyroxine Sodium 50 mcg QAM@0600 PO 12/17/24 06:00 12/19/24 06:18 50 MCG Atorvastatin Calcium 40 mg HS PO 12/17/24 22:00 12/18/24 21:38 40 MG Calcitriol 0.5 mcg DAILY PO 12/18/24 11:15 12/19/24 09:54 0.5 MCG Amlodipine Besylate 5 mg DAILY PO 12/19/24 09:15 12/19/24 09:55 5 MG Examination: GENERAL:Normal, LUNGS:Normal, CVS:Normal, NEURO:Normal laboratory and microbiology Laboratory Tests 12/19/24 06:32 Test 12/19/24 06:32 Range/Units Serum Glucose 93 74-106 mg/dL Problem List/Assessment/Plan Problem List/Assessment/Plan Chest pain, rule out coronary artery disease Positive nuclear stress test Rule out structural heart disease Hypertension Hypertriglyceridemia, newly diagnosed Thyroid disease End-stage renal disease on hemodialysis Plan/Recommendations:(Dr. Montemayor): * Transthoracic echocardiogram to evaluate cardiac function * Chest pain protocol * VIJAY score: 2 points * HEART score: 4 points * Single antiplatelet therapy and lipid-lowering agent * Close Cardiac surveillance * Nuclear stress test: Positive * [facility] Nuclear stress test findings positive for ischemia. Patient may benefit from coronary angiogram with left heart catheterization. The procedure was discussed with the patient in full detail including risks and benefits. Risks include but are not limited to bleeding, contrast-induced nephropathy, stroke, and even . The patient understands and is agreeable to undergo the procedure. We will schedule the patient at soonest availability on 12/20/2024. The patient will need to undergo dialysis postprocedure. Thank you for allowing us to care for this patient. Please call with any questions or concerns. This medical document was created using an electronic medical record system with voice recognition software and computerized dictation system. Although this document has been carefully reviewed, there might still be some phonetic and typographical errors. Occasional wrong-word or ``sound-alike substitutions may have occurred due to the inherent limitations of voice recognition software. These areas are purely typographical due to imperfections of the software programs and do not reflect any compromise in the patient's medical care. Please read the chart carefully and recognize, using context, where these substitutions have occurred. Plan discussed with: Patient, Daughter, Other (Bedside RN) Date of Service: December 19, 2024 Billing Provider: DUDLEY PEARCE Common Visit Codes: [id number] INP/OBS CARE(HIGH) DUDLEY PEARCE December 19, 2024 10:22
[2024-12-19] MEDS: DOCUSATE SOD 100 MG CAP PO ONE (13:11)
[2024-12-19] MEDS: LACTULOSE 20Gm/30ML SOLN PO ONE (13:12)
--- NOTE | 2024-12-19 14:46 | ECG ---
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
[2024-12-19] MEDS: ACETAMINOPHEN 325 MG TAB PO PRN (15:41)
[2024-12-19] MEDS: DOCUSATE SOD 100 MG CAP PO SCH (21:34)
[2024-12-20] VITALS (14 sets, daily range): BP systolic 127–172; BP diastolic 75–91; PULSE 72–94; RESP 12–18; TEMP 97.4–98.5; O2SAT 95–99
[2024-12-20 06:36] LABS: Anion Gap 14 (5-15); Carbon Dioxide 26 mmol/L (20-31); Sodium 137 mmol/L (136-145)
[2024-12-20 06:37] LABS: Calcium 9.1 mg/dL (8.7-10.4)
[2024-12-20 06:41] LABS: Chloride 97 mmol/L (98-107); Potassium 5.2 mmol/L (3.5-5.1)
[2024-12-20 06:42] LABS: Glucose 93 mg/dL (74-106)
[2024-12-20 06:49] LABS: Basophils # (auto) 0 10 ^3/uL (0-0.2); Basophils % (auto) 0.3 % (0.0-2.0); Eosinophils # (auto) 0.2 10 ^3/uL (0-0.8); Eosinophils % (auto) 1.9 % (0.0-7.0); Hematocrit 32.2 % (36.0-46.0); Hemoglobin 11.1 g/dL (12.2-16.2); Lymphocytes # (auto) 2.3 10 ^3/uL (0.4-5.4); Lymphocytes % (auto) 26.7 % (10.0-50.0); Mean Corpuscular Hemoglobin 33.5 pg (28.0-32.0); Mean Corpuscular Hgb Conc. 34.5 g/dL (32.0-36.0); Monocytes # (auto) 0.6 10 ^3/uL (0-1.3); Monocytes % (auto) 6.7 % (0.0-12.0); Neutrophils # (auto) 5.6 10 ^3/uL (1.6-8.6); Neutrophils % (auto) 64.4 % (37.0-80.0); Platelet Count (auto) 201 10^3/uL (140-450); Red Blood Cells 3.32 10^6/uL (4.0-5.20); Red Cell Distribution Width 13.4 % (11.8-14.3); White Blood Cell 8.7 10^3/uL (4.4-10.8)
[2024-12-20 06:57] LABS: Blood Urea Nitrogen 58 mg/dL (9-23)
[2024-12-20] MEDS ORDERED: SODIUM CHL 0.9% 1000 ML BAG XX ONE (07:00)
--- NOTE | 2024-12-20 11:57 | DVHPN2 ---
Subjective No chest pain Scheduled for heart catheterization today and hemodialysis Changes from previous H/P or p: Changes Objective Vitals Vital Signs Date Time Temp Pulse Resp B/P (MAP) Pulse Ox O2 Delivery O2 Flow Rate FiO2 12/20/24 10:27 136/79 12/20/24 09:00 97.6 72 17 98 97.6 12/20/24 08:30 Room Air* 0 21 Intake/Output Intake and Output 12/20/24 07:00 Intake Total 1050 ml Balance 1050 ml Intake Oral 1050 ml # Voids 2 # Bowel Movements 2 General Appearance: Alert, Oriented X3, Cooperative, No acute distress Lungs: Clear to auscultation, Normal air movement Cardiovascular: Regular rate, Normal S1, Normal S2 Abdomen: Normal bowel sounds, Soft, No tenderness Extremities: No edema Medications Current Medications Medications Dose Ordered Sig/Tere Route Start Time Stop Time Status Last Admin Dose Admin Nitroglycerin 0.4 mg Q5MINP PRN SL 12/16/24 20:45 Morphine Sulfate 2 mg Q30M PRN IV 12/16/24 20:45 12/17/24 13:37 2 MG Sevelamer HCl 800 mg TIDWM PO 12/17/24 08:00 12/20/24 08:03 800 MG Aspirin 81 mg DAILY PO 12/17/24 10:00 12/19/24 09:54 81 MG Clonidine HCl 0.1 mg Q6HP PRN PO 12/16/24 21:15 Ondansetron HCl 4 mg Q4HP PRN IV 12/16/24 21:15 12/17/24 13:28 4 MG Acetaminophen 650 mg Q6HP PRN PO 12/16/24 21:15 12/19/24 15:41 650 MG Levothyroxine Sodium 50 mcg QAM@0600 PO 12/17/24 06:00 12/20/24 06:02 50 MCG Atorvastatin Calcium 40 mg HS PO 12/17/24 22:00 12/19/24 21:34 40 MG Calcitriol 0.5 mcg DAILY PO 12/18/24 11:15 12/19/24 09:54 0.5 MCG Amlodipine Besylate 5 mg DAILY PO 12/19/24 09:15 12/20/24 10:27 5 MG Docusate Sodium 100 mg BID PO 12/19/24 22:00 12/19/24 21:34 100 MG Laboratory Results Laboratory Tests 12/20/24 05:51 Chemistry Test 12/20/24 05:51 Calcium Level 9.1 mg/dL (8.7-10.4) Microbiology Microbiology Date/Time Source Procedure Growth Status 12/17/24 16:16 Nose MRSA Screen - Final Complete Assessment/Plan Assessment/Plan Chest pain rule out ACS End-stage renal disease on hemodialysis Hypothyroidism, uncontrolled Hypertension Hyperparathyroidism, secondary versus tertiary Plan Telemetry Aspirin Lipitor Nephrology consult for dialysis Continue levothyroxine Echocardiogram Cardiology consult Monitor closely The rest of the management will depend on the hospital course 12/18/24: Stress test was abnormal s/p HD Will need a heart cath 12/19/2024: Abnormal stress test: Heart catheterization for tomorrow Hemodialysis as per Nephrology Monitor closely 12/20/2024: Continue current management pending the heart catheterization today Hemodialysis after the heart catheterization Hyperkalemia: Hemodialysis today Monitor closely Plan discussed with: Patient My Orders Orders - AYDEE SANTOS MD Procedure Category Date Status Time Docusate Sodium PHA 12/19/24 In Process Capsule (Colace 22:00 Date of Service: December 20, 2024 Billing Provider: AYDEE SANTOS MD Common Visit Codes: [id number] INP/OBS CARE(HIGH) AYDEE SANTOS MD December 20, 2024 11:57
--- NOTE | 2024-12-20 12:16 | DVHSR ---
APPROVED REPORT EXAM: Two-dimensional and M-mode echocardiogram with Doppler and color Doppler. Blood Pressure: 128/72 mmHg INDICATION Chest Pain RISK FACTORS Height: 5'0", Weight: 138 DIMENSIONS LVDd4.9 (3.8-5.7cm)LA (2D)4.4 (1.9-4.0cm)Aortic Root3.3 (2.0-3.7cm) LVDs3.2 (2.5-4.0cm)LA (MM) (1.9-4.0cm)Aortic Cusp Exc1.9 (1.5-2.0cm) EF (%) 60.0 (55-70%)Rt. Atrium4.1 (1.9-4.0cm)Asc. Aorta cm IVSd1.1 (0.7-1.1cm)RV (D)3.6 (1.8-2.4cm) PWd1.2 (0.7-1.1cm) Mitral Valve MitralMitral Stenosis E wave1.03m/sMV Mean GR.mmHg A wave1.08m/sMV Peak GR.mmHg E/A ratio1.02D MVAcm2 DECEL [id number] 1/2 Timems Aortic Valve Aortic ValveAortic Stenosis V11.15m/Laxmi Mean GR.11mmHg V22.40m/Laxmi Peak GR.23mmHg LVOT Diameter1.9 (1.8-2.4cm)Doppler AVA1.36cm2 AI P 1/2 Vvki853.63ms Pulmonic Valve V21.41m/s Tricuspid Valve TR Velocity3.14m/s [id number] Conclusion Sinus rhythm. Concentric LVH. Biatrial enlargement. Aortic root enlargement. Valves are normal. Mild aortic sclerosis. EF of 60% with normal RV function. Mild to moderate AI. Mild mitral insufficiency. Mild tricuspid regurgitation. No pericardial effusion masses or
--- NOTE | 2024-12-20 12:25 | ECG ---
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
[2024-12-20] MEDS: IODIXANOL 320MG/ML 100ML BTL IV ONE (14:42)
[2024-12-20] MEDS: fentaNYL CITRATE 100 MCG/2 ML VL ONE (14:44)
[2024-12-20] MEDS: VERAPAMIL 2.5MG/ML INJ 2ML VIAL IV ONE (14:44)
[2024-12-20] MEDS: ANGIOMAX 250 MG VIAL IV ONE (14:44)
[2024-12-20] MEDS: SODIUM CHL 0.9% 50 ML ONE (14:45)
[2024-12-20] MEDS: MIDAZOLAM HCL 2MG/2ML 2ml VIAL (1mg/ml) ONE (14:45)
[2024-12-20] MEDS: LIDOCAINE 2%HCL (LOCAL ANESTH.) INJ 20ML MDV ONE (14:45)
[2024-12-20] MEDS: HEPARIN SODIUM (PORCINE) 5000 UNITS/ML 1ML VIAL ONE (14:47)
--- NOTE | 2024-12-20 15:27 | DVHOP2 ---
Operative Report - 2 Report Details Date: 12/20/24 Preop Diagnosis: CAD Postop Diagnosis: Normal coronaries Surgeon: Kiran Montemayor MD Anesthesiologist: Conscious sedation Anesthesia: Mac, Local Consent: The patient was informed of the risks and benefits of the procedure. These include but are not limited to complications of anesthesia, postoperative infection, incomplete relief of symptoms, recurrence of symptoms, damage to blood vessels, nerves and tendons, deep venous thrombosis, pulmonary embolism and possible need for repeat surgery in the future. Complications: No complications Findings: Normal coronaries Indications for Surgery: Chest pain Name of Procedure Performed Left heart catheterization bilateral cine coronary angiography. Left ventriculography. Procedure Details Procedure Details: Prior local anesthesia with 2% lidocaine to right wrist and full informed consent obtained patient was prepped and draped in usual fashion followed by placement of a six Bulgarian sheath into the right radial artery through which six Bulgarian Bienvenido catheters were used to cannulate both right and left coronary ostium. A Wilfrido catheter was used for ventriculography. No complications Hemodynamics: Aortic blood pressure was 110/70. End-diastolic pressure was 12. There was no gradient across the aortic valve on pullback. Coronary anatomy the RCA is a large vessel was codominant. It is normal in its proximal mid and distal segments. PDA and posterolateral branches are normal. Left main is large and normal. Left anterior descending is large and normal. Diagonals and septals are free of significant disease. Circumflex is large vessel. In his codominant. Very large posterolateral branches and marginals are noted. There are free of significant disease. Ventriculography in the WEBSTER projection shows an EF of about 40% with mild global hypokinesis. Impression: Normal left ventricular end-diastolic pressure at rest with mildly decreased left ventricular ejection fraction. Normal coronary arteries. Recommendations: Medical therapy is warranted. Continue risk factor modification Condition Good Disposition Still a Patient Date of Service: December 20, 2024 Billing Provider: KIRAN MONTEMAYOR Sr., MD Cardiology Common Codes: PROCEDURE ONLY Cardiology Procedure Codes: [id number]-QALB HEART CATH W/INTRA INJ KIRAN MONTEMAYOR Sr., MD December 20, 2024 15:27
--- NOTE | 2024-12-20 16:22 | DVHPN2 ---
Progress Note - Dictate Date Seen: December 20, 2024 Medical Necessity Reason Pt with a Central, PICC or Fol: No Subjective Patient not in her room during rounds vital signs Vital Sign Date Time Temp Pulse Resp B/P (MAP) Pulse Ox O2 Delivery O2 Flow Rate FiO2 12/20/24 15:53 84 12 154/91 (112) 98 12/20/24 13:10 97.4 97.4 12/20/24 08:30 Room Air* 0 21 Total Intake and Output 12/19/24 12/19/24 12/20/24 15:00 23:00 07:00 Intake Total 550 ml 500 ml Balance 550 ml 500 ml medications Current Medications Medications Dose Ordered Sig/Tere Route Start Time Stop Time Status Last Admin Dose Admin Nitroglycerin 0.4 mg Q5MINP PRN SL 12/16/24 20:45 Morphine Sulfate 2 mg Q30M PRN IV 12/16/24 20:45 12/17/24 13:37 2 MG Sevelamer HCl 800 mg TIDWM PO 12/17/24 08:00 12/20/24 08:03 800 MG Aspirin 81 mg DAILY PO 12/17/24 10:00 12/19/24 09:54 81 MG Clonidine HCl 0.1 mg Q6HP PRN PO 12/16/24 21:15 Ondansetron HCl 4 mg Q4HP PRN IV 12/16/24 21:15 12/17/24 13:28 4 MG Acetaminophen 650 mg Q6HP PRN PO 12/16/24 21:15 12/19/24 15:41 650 MG Levothyroxine Sodium 50 mcg QAM@0600 PO 12/17/24 06:00 12/20/24 06:02 50 MCG Atorvastatin Calcium 40 mg HS PO 12/17/24 22:00 12/19/24 21:34 40 MG Calcitriol 0.5 mcg DAILY PO 12/18/24 11:15 12/19/24 09:54 0.5 MCG Amlodipine Besylate 5 mg DAILY PO 12/19/24 09:15 12/20/24 10:27 5 MG Docusate Sodium 100 mg BID PO 12/19/24 22:00 12/19/24 21:34 100 MG objective Exam deferred as patient was not in her room. laboratory and microbiology Laboratory Tests 12/20/24 05:51 Test 12/20/24 05:51 Range/Units Serum Glucose 93 74-106 mg/dL Assessment/Plan End-stage renal disease on hemodialysis Chest pain rule out acute coronary syndrome Elevated troponin Hypertension Hypothyroidism Anemia of chronic kidney disease, well compensated Secondary hyperparathyroidism Recommendations Hemodialysis December 21 [facility] p.o. x1 this evening Dietary Evaluation Review Comments: Follow current Diet. Monitor PO intake to meet 75% of her needs. Expected Outcomes/Goals: gradual wt loss Plan discussed with: Other FAIZAN VANG MD December 20, 2024 16:22
[2024-12-20] MEDS: SODIUM ZIRCONIUM CYCL 10 GM PAK PO ONE (17:15)
[2024-12-20] MEDS ORDERED: LABETALOL HCL 20 MG/4 ML VL IV PRN (17:15)
[2024-12-20] MEDS: LABETALOL HCL 20 MG/4 ML VL IV ONE (17:24)
[2024-12-21] VITALS (8 sets, daily range): BP systolic 144–159; BP diastolic 84–93; PULSE 74–97; RESP 16–19; TEMP 97.9–99.1; O2SAT 97–100
[2024-12-21 07:36] LABS: Calcium 9.4 mg/dL (8.7-10.4)
[2024-12-21 07:37] LABS: Anion Gap 15 (5-15); Carbon Dioxide 23 mmol/L (20-31)
[2024-12-21 07:42] LABS: BUN/Creatinine Ratio 6.4 (10.0-20.0); Glucose 82 mg/dL (74-106)
[2024-12-21 07:47] LABS: Blood Urea Nitrogen 74 mg/dL (9-23); Chloride 96 mmol/L (98-107); Sodium 134 mmol/L (136-145)
[2024-12-21 07:51] LABS: Potassium 5.7 mmol/L (3.5-5.1)
--- NOTE | 2024-12-21 11:12 | DVHPN2 ---
Consult Progress Note Date Seen: December 21, 2024 Subjective Review of Systems: CVS:Normal, RESPIRATORY:Normal, NEURO:Normal Objective vital signs Vital Sign Date Time Temp Pulse Resp B/P (MAP) Pulse Ox O2 Delivery O2 Flow Rate FiO2 12/21/24 09:10 155/87 12/21/24 09:00 98.1 77 16 97 98.1 12/20/24 20:00 Room Air* 0 21 Total Intake and Output 12/20/24 12/20/24 12/21/24 15:00 23:00 07:00 Intake Total 350 ml 800 ml Output Total 150 ml 1 ml Balance 200 ml 799 ml medications Current Medications Medications Dose Ordered Sig/Tere Route Start Time Stop Time Status Last Admin Dose Admin Nitroglycerin 0.4 mg Q5MINP PRN SL 12/16/24 20:45 Morphine Sulfate 2 mg Q30M PRN IV 12/16/24 20:45 12/17/24 13:37 2 MG Sevelamer HCl 800 mg TIDWM PO 12/17/24 08:00 12/21/24 09:10 800 MG Aspirin 81 mg DAILY PO 12/17/24 10:00 12/21/24 09:10 81 MG Clonidine HCl 0.1 mg Q6HP PRN PO 12/16/24 21:15 Ondansetron HCl 4 mg Q4HP PRN IV 12/16/24 21:15 12/17/24 13:28 4 MG Acetaminophen 650 mg Q6HP PRN PO 12/16/24 21:15 12/21/24 09:16 650 MG Levothyroxine Sodium 50 mcg QAM@0600 PO 12/17/24 06:00 12/21/24 06:01 50 MCG Atorvastatin Calcium 40 mg HS PO 12/17/24 22:00 12/20/24 21:41 40 MG Calcitriol 0.5 mcg DAILY PO 12/18/24 11:15 12/21/24 09:11 0.5 MCG Amlodipine Besylate 5 mg DAILY PO 12/19/24 09:15 12/21/24 09:10 5 MG Docusate Sodium 100 mg BID PO 12/19/24 22:00 12/21/24 09:10 100 MG Labetalol HCl 10 mg Q1HP PRN IV 12/20/24 17:15 Examination: LUNGS:Normal, CVS:Normal, NEURO:Normal laboratory and microbiology Laboratory Tests 12/21/24 06:44 12/20/24 05:51 Test 12/21/24 06:44 Range/Units Serum Glucose 82 74-106 mg/dL Problem List/Assessment/Plan Problem List/Assessment/Plan Chest pain, coronary artery disease ruled out Hypertension Hypertriglyceridemia, newly diagnosed Thyroid disease End-stage renal disease on hemodialysis Plan/Recommendations: (Dr. Montemayor) The patient with chest pain underwent a transthoracic echocardiogram revealing a LVEF of 60% with concentric LVH and underwent a cardiac catheterization without catheter based intervention given normal coronaries. Chest pain likely secondary to other processed such as costochondritis or uncontrolled blood pressure. Continue aggressive blood pressure control. There is no further cardiac work-up indicated at this time. Kindly call if in need to continue following up. Thank you for allowing us to care for this patient. This medical document was created using an electronic medical record system with voice recognition software and computerized dictation system. Although this document has been carefully reviewed, there might still be some phonetic and typographical errors. Occasional wrong-word or ``sound-alike substitutions may have occurred due to the inherent limitations of voice recognition software. These areas are purely typographical due to imperfections of the software programs and do not reflect any compromise in the patient's medical care. Please read the chart carefully and recognize, using context, where these substitutions have occurred. Plan discussed with: Patient, Daughter, Other Dietary Evaluation Review Comments: Follow current Diet. Monitor PO intake to meet 75% of her needs. Expected Outcomes/Goals: gradual wt loss Date of Service: December 21, 2024 Billing Provider: NANCY JARVIS Cardiology Common Codes: [id number] INP/OBS CARE(Mod) NANCY JARVIS December 21, 2024 11:12
[2024-12-21] MEDS: SODIUM ZIRCONIUM CYCL 10 GM PAK PO ONE (12:15)
--- NOTE | 2024-12-21 13:18 | DVHPN2 ---
Progress Note Date Seen: December 21, 2024 Medical Necessity Reason Pt with a Central, PICC or Fol: No Subjective Review of Systems Pt states she feels better today. Patient reports: No new complaints, Feels better Objective vital signs Vital Sign Date Time Temp Pulse Resp B/P (MAP) Pulse Ox O2 Delivery O2 Flow Rate FiO2 12/21/24 09:10 155/87 12/21/24 09:00 98.1 77 16 97 98.1 12/21/24 08:00 Room Air* 0 21 Total Intake and Output 12/20/24 12/20/24 12/21/24 15:00 23:00 07:00 Intake Total 350 ml 800 ml Output Total 150 ml 1 ml Balance 200 ml 799 ml medications Current Medications Medications Dose Ordered Sig/Tere Route Start Time Stop Time Status Last Admin Dose Admin Nitroglycerin 0.4 mg Q5MINP PRN SL 12/16/24 20:45 Morphine Sulfate 2 mg Q30M PRN IV 12/16/24 20:45 12/17/24 13:37 2 MG Sevelamer HCl 800 mg TIDWM PO 12/17/24 08:00 12/21/24 12:15 800 MG Aspirin 81 mg DAILY PO 12/17/24 10:00 12/21/24 09:10 81 MG Clonidine HCl 0.1 mg Q6HP PRN PO 12/16/24 21:15 Ondansetron HCl 4 mg Q4HP PRN IV 12/16/24 21:15 12/17/24 13:28 4 MG Acetaminophen 650 mg Q6HP PRN PO 12/16/24 21:15 12/21/24 09:16 650 MG Levothyroxine Sodium 50 mcg QAM@0600 PO 12/17/24 06:00 12/21/24 06:01 50 MCG Atorvastatin Calcium 40 mg HS PO 12/17/24 22:00 12/20/24 21:41 40 MG Calcitriol 0.5 mcg DAILY PO 12/18/24 11:15 12/21/24 09:11 0.5 MCG Amlodipine Besylate 5 mg DAILY PO 12/19/24 09:15 12/21/24 09:10 5 MG Docusate Sodium 100 mg BID PO 12/19/24 22:00 12/21/24 09:10 100 MG Labetalol HCl 10 mg Q1HP PRN IV 12/20/24 17:15 Patient Own Medication 1 TID PO 12/21/24 14:00 Examination Gen: Appears stated age, no acute distress Lungs: Bilateral air entry, no rales CVS: RRR, normal S1 and S2 Ext: No edema Neuro: A&O x4 laboratory and microbiology Laboratory Tests 12/21/24 06:44 12/20/24 05:51 Test 12/21/24 06:44 Range/Units Serum Glucose 82 74-106 mg/dL Microbiology Date/Time Source Procedure Growth Status 12/17/24 16:16 Nose MRSA Screen - Final Complete Labs and/or images reviewed: Labs reviewed by me Problem List/Assessment/Plan Problem List/Assessment/Plan End-stage renal disease on hemodialysis-hemodialysis today Chest pain rule out acute coronary syndrome-cardiology following Elevated troponin Hypertension Hypothyroidism Anemia of chronic kidney disease, well compensated Secondary hyperparathyroidism REC Hemodialysis today Chemistry panel Strict I&Os Will continue to follow Plan discussed with: Patient Dietary Evaluation Review Comments: Follow current Diet. Monitor PO intake to meet 75% of her needs. Expected Outcomes/Goals: gradual wt loss DONTA CALVILLO December 21, 2024 13:18
[2024-12-21] MEDS: AURYXIA 210MG TABLET PO SCH (14:00)
[2024-12-21] MEDS ORDERED: SODIUM CHL 0.9% 1000 ML BAG XX ONE (15:00)
--- NOTE | 2024-12-21 15:51 | DVHPN2 ---
Subjective c/o bilateral parotids swelling K+: 5.7, did not get HD yesterday Changes from previous H/P or p: Changes Objective Vitals Vital Signs Date Time Temp Pulse Resp B/P (MAP) Pulse Ox O2 Delivery O2 Flow Rate FiO2 12/21/24 13:00 98.1 78 18 144/88 (106) 98 98.1 12/21/24 08:00 Room Air* 0 21 Intake/Output Intake and Output 12/21/24 07:00 Intake Total 1150 ml Output Total 151 ml Balance 999 ml Intake Oral 1150 ml Output Urine Total 151 ml # Voids 1 General Appearance: Alert, Oriented X3, Cooperative, No acute distress Lungs: Clear to auscultation, Normal air movement Cardiovascular: Regular rate, Normal S1, Normal S2 Abdomen: Normal bowel sounds, Soft, No tenderness Extremities: No edema Medications Current Medications Medications Dose Ordered Sig/Tere Route Start Time Stop Time Status Last Admin Dose Admin Nitroglycerin 0.4 mg Q5MINP PRN SL 12/16/24 20:45 Morphine Sulfate 2 mg Q30M PRN IV 12/16/24 20:45 12/17/24 13:37 2 MG Sevelamer HCl 800 mg TIDWM PO 12/17/24 08:00 12/21/24 12:15 800 MG Aspirin 81 mg DAILY PO 12/17/24 10:00 12/21/24 09:10 81 MG Clonidine HCl 0.1 mg Q6HP PRN PO 12/16/24 21:15 Ondansetron HCl 4 mg Q4HP PRN IV 12/16/24 21:15 12/17/24 13:28 4 MG Acetaminophen 650 mg Q6HP PRN PO 12/16/24 21:15 12/21/24 09:16 650 MG Levothyroxine Sodium 50 mcg QAM@0600 PO 12/17/24 06:00 12/21/24 06:01 50 MCG Atorvastatin Calcium 40 mg HS PO 12/17/24 22:00 12/20/24 21:41 40 MG Calcitriol 0.5 mcg DAILY PO 12/18/24 11:15 12/21/24 09:11 0.5 MCG Amlodipine Besylate 5 mg DAILY PO 12/19/24 09:15 12/21/24 09:10 5 MG Docusate Sodium 100 mg BID PO 12/19/24 22:00 12/21/24 09:10 100 MG Labetalol HCl 10 mg Q1HP PRN IV 12/20/24 17:15 Patient Own Medication 1 TID PO 12/21/24 14:00 Laboratory Results Laboratory Tests 12/20/24 05:51 12/21/24 06:44 Chemistry Test 12/21/24 06:44 Calcium Level 9.4 mg/dL (8.7-10.4) Microbiology Microbiology Date/Time Source Procedure Growth Status 12/17/24 16:16 Nose MRSA Screen - Final Complete Assessment/Plan Assessment/Plan Chest pain rule out ACS End-stage renal disease on hemodialysis Hypothyroidism, uncontrolled Hypertension Hyperparathyroidism, secondary versus tertiary Plan Telemetry Aspirin Lipitor Nephrology consult for dialysis Continue levothyroxine Echocardiogram Cardiology consult Monitor closely The rest of the management will depend on the hospital course 12/18/24: Stress test was abnormal s/p HD Will need a heart cath 12/19/2024: Abnormal stress test: Heart catheterization for tomorrow Hemodialysis as per Nephrology Monitor closely 12/20/2024: Continue current management pending the heart catheterization today Hemodialysis after the heart catheterization Hyperkalemia: Hemodialysis today Monitor closely 12/21/24: Hyperkalemia: Lokelma x1 Parotid gland pain: Hot/cold compresses, Tylenol, ESRD: HD Heart cath: Nl Plan discussed with: Patient, Daughter My Orders Orders - AYDEE SANTOS MD Procedure Category Date Status Time Patients Own PHA 12/21/24 In Process Medication 14:00 Date of Service: December 21, 2024 Billing Provider: AYDEE SANTOS MD Common Visit Codes: [id number] INP/OBS CARE(HIGH) AYDEE SANTOS MD December 21, 2024 15:51
[2024-12-22] VITALS (7 sets, daily range): BP systolic 134–145; BP diastolic 79–84; PULSE 68–84; RESP 16–19; TEMP 97.4–98.8; O2SAT 96–99
[2024-12-22 08:27] LABS: Chloride 98 mmol/L (98-107)
[2024-12-22 08:28] LABS: Anion Gap 13 (5-15); Carbon Dioxide 25 mmol/L (20-31)
[2024-12-22 08:33] LABS: BUN/Creatinine Ratio 5.5 (10.0-20.0); Glucose 86 mg/dL (74-106)
[2024-12-22 08:37] LABS: Blood Urea Nitrogen 50 mg/dL (9-23); Sodium 136 mmol/L (136-145)
[2024-12-22 08:40] LABS: Potassium 5.8 mmol/L (3.5-5.1)
[2024-12-22] MEDS: SODIUM ZIRCONIUM CYCL 10 GM PAK PO ONE (10:33)
--- NOTE | 2024-12-22 12:35 | DVHPN2 ---
Subjective Swelling in her parotid glands is better Potassium is high at 5.8 Changes from previous H/P or p: Changes Objective Vitals Vital Signs Date Time Temp Pulse Resp B/P (MAP) Pulse Ox O2 Delivery O2 Flow Rate FiO2 12/22/24 09:15 141/83 12/22/24 09:00 19 Room Air* 0 21 12/22/24 08:00 71 12/22/24 05:00 98.4 96 98.4 Intake/Output Intake and Output 12/22/24 07:00 Intake Total 1875 ml Balance 1875 ml Intake Oral 1875 ml # Voids 5 # Bowel Movements 1 General Appearance: Alert, Oriented X3, Cooperative, No acute distress Lungs: Clear to auscultation, Normal air movement Cardiovascular: Regular rate, Normal S1, Normal S2 Abdomen: Normal bowel sounds, Soft, No tenderness Extremities: No edema Medications Current Medications Medications Dose Ordered Sig/Tere Route Start Time Stop Time Status Last Admin Dose Admin Nitroglycerin 0.4 mg Q5MINP PRN SL 12/16/24 20:45 Morphine Sulfate 2 mg Q30M PRN IV 12/16/24 20:45 12/17/24 13:37 2 MG Sevelamer HCl 800 mg TIDWM PO 12/17/24 08:00 12/22/24 08:22 800 MG Aspirin 81 mg DAILY PO 12/17/24 10:00 12/22/24 09:12 81 MG Clonidine HCl 0.1 mg Q6HP PRN PO 12/16/24 21:15 Ondansetron HCl 4 mg Q4HP PRN IV 12/16/24 21:15 12/17/24 13:28 4 MG Acetaminophen 650 mg Q6HP PRN PO 12/16/24 21:15 12/21/24 09:16 650 MG Levothyroxine Sodium 50 mcg QAM@0600 PO 12/17/24 06:00 12/22/24 06:07 50 MCG Atorvastatin Calcium 40 mg HS PO 12/17/24 22:00 12/21/24 22:08 40 MG Calcitriol 0.5 mcg DAILY PO 12/18/24 11:15 12/22/24 09:12 0.5 MCG Amlodipine Besylate 5 mg DAILY PO 12/19/24 09:15 12/22/24 09:15 5 MG Docusate Sodium 100 mg BID PO 12/19/24 22:00 12/22/24 09:12 100 MG Labetalol HCl 10 mg Q1HP PRN IV 12/20/24 17:15 Patient Own Medication 1 TID PO 12/21/24 14:00 12/22/24 06:09 1 Laboratory Results Laboratory Tests 12/20/24 05:51 12/22/24 07:57 Chemistry Test 12/22/24 07:57 Calcium Level 10.0 mg/dL (8.7-10.4) Microbiology Microbiology Date/Time Source Procedure Growth Status 12/17/24 16:16 Nose MRSA Screen - Final Complete Assessment/Plan Assessment/Plan Chest pain rule out ACS End-stage renal disease on hemodialysis Hypothyroidism, uncontrolled Hypertension Hyperparathyroidism, secondary versus tertiary Plan Telemetry Aspirin Lipitor Nephrology consult for dialysis Continue levothyroxine Echocardiogram Cardiology consult Monitor closely The rest of the management will depend on the hospital course 12/18/24: Stress test was abnormal s/p HD Will need a heart cath 12/19/2024: Abnormal stress test: Heart catheterization for tomorrow Hemodialysis as per Nephrology Monitor closely 12/20/2024: Continue current management pending the heart catheterization today Hemodialysis after the heart catheterization Hyperkalemia: Hemodialysis today Monitor closely 12/21/24: Hyperkalemia: Lokelma x1 Parotid gland pain: Hot/cold compresses, Tylenol, ESRD: HD Heart cath: Nl 12/21/2024: Hyperkalemia: Give Lokelma again Parotid gland swelling, better End-stage renal disease on hemodialysis Plan discussed with: Patient Date of Service: December 22, 2024 Billing Provider: AYDEE SANTOS MD Common Visit Codes: [id number] INP/OBS CARE(MOD) AYDEE SANTOS MD December 22, 2024 12:35
--- NOTE | 2024-12-22 13:21 | DVHPN2 ---
Progress Note Date Seen: December 22, 2024 Medical Necessity Reason Pt with a Central, PICC or Fol: No Subjective Review of Systems Pt reports she feels better todaty. Reports had dialysis yesterday and tolerated well. Patient reports: No new complaints, Feels better Objective vital signs Vital Sign Date Time Temp Pulse Resp B/P (MAP) Pulse Ox O2 Delivery O2 Flow Rate FiO2 12/22/24 09:15 141/83 12/22/24 09:00 19 Room Air* 0 21 12/22/24 08:00 71 12/22/24 05:00 98.4 96 98.4 Total Intake and Output 12/21/24 12/21/24 12/22/24 15:00 23:00 07:00 Intake Total 975 ml 900 ml Balance 975 ml 900 ml medications Current Medications Medications Dose Ordered Sig/Tere Route Start Time Stop Time Status Last Admin Dose Admin Nitroglycerin 0.4 mg Q5MINP PRN SL 12/16/24 20:45 Morphine Sulfate 2 mg Q30M PRN IV 12/16/24 20:45 12/17/24 13:37 2 MG Sevelamer HCl 800 mg TIDWM PO 12/17/24 08:00 12/22/24 08:22 800 MG Aspirin 81 mg DAILY PO 12/17/24 10:00 12/22/24 09:12 81 MG Clonidine HCl 0.1 mg Q6HP PRN PO 12/16/24 21:15 Ondansetron HCl 4 mg Q4HP PRN IV 12/16/24 21:15 12/17/24 13:28 4 MG Acetaminophen 650 mg Q6HP PRN PO 12/16/24 21:15 12/21/24 09:16 650 MG Levothyroxine Sodium 50 mcg QAM@0600 PO 12/17/24 06:00 12/22/24 06:07 50 MCG Atorvastatin Calcium 40 mg HS PO 12/17/24 22:00 12/21/24 22:08 40 MG Calcitriol 0.5 mcg DAILY PO 12/18/24 11:15 12/22/24 09:12 0.5 MCG Amlodipine Besylate 5 mg DAILY PO 12/19/24 09:15 12/22/24 09:15 5 MG Docusate Sodium 100 mg BID PO 12/19/24 22:00 12/22/24 09:12 100 MG Labetalol HCl 10 mg Q1HP PRN IV 12/20/24 17:15 Patient Own Medication 1 TID PO 12/21/24 14:00 12/22/24 06:09 1 Examination Gen: Appears stated age, no acute distress Lungs: Bilateral air entry, no rales CVS: RRR, normal S1 and S2 Ext: No edema Neuro: A&O x4 laboratory and microbiology Laboratory Tests 12/22/24 07:57 12/20/24 05:51 Test 12/22/24 07:57 Range/Units Serum Glucose 86 74-106 mg/dL Microbiology Date/Time Source Procedure Growth Status 12/17/24 16:16 Nose MRSA Screen - Final Complete Labs and/or images reviewed: Labs reviewed by me Problem List/Assessment/Plan Problem List/Assessment/Plan End-stage renal disease on hemodialysis-hemodialysis yest Chest pain rule out acute coronary syndrome-cardiology following Elevated troponin Hypertension Hypothyroidism Anemia of chronic kidney disease, well compensated Secondary hyperparathyroidism Hyperkalemia- Lokelma x1 REC HD tomorrow Repeat chemistry panel Strict I&Os If pt is discharged pt to attend HD outpt on next scheduled chairtime Case discussed with Dr. Isaac Mcdowell Plan discussed with: Patient, Daughter Dietary Evaluation Review Comments: Follow current Diet. Monitor PO intake to meet 75% of her needs. Expected Outcomes/Goals: gradual wt loss DONTA CALVILLO December 22, 2024 13:21
[2024-12-23 01:00] VITALS: BP 149/91; PULSE 97; RESP 18; TEMP 98.4; O2SAT 98
[2024-12-23 05:00] VITALS: BP 144/76; PULSE 76; RESP 18; TEMP 98.1; O2SAT 98
[2024-12-23 06:08] LABS: Anion Gap 13 (5-15); Carbon Dioxide 23 mmol/L (20-31); Chloride 101 mmol/L (98-107); Sodium 137 mmol/L (136-145)
[2024-12-23 06:14] LABS: BUN/Creatinine Ratio 5.8 (10.0-20.0); Glucose 87 mg/dL (74-106)
[2024-12-23 06:16] LABS: Blood Urea Nitrogen 65 mg/dL (9-23); Potassium 5.3 mmol/L (3.5-5.1)
[2024-12-23 08:00] VITALS: PULSE 79
[2024-12-23] MEDS ORDERED: SODIUM CHL 0.9% 1000 ML BAG XX ONE (08:00)
[2024-12-23] MEDS ORDERED: EPOETIN ALFA-EPBX 10,000 UNIT/1ML VIAL IV ONE (08:00)
[2024-12-23 09:16] VITALS: BP 145/86; PULSE 73; RESP 16; TEMP 98.3; O2SAT 97
[2024-12-23 10:26] LABS: Hematocrit 33.7 % (36.0-46.0); Hemoglobin 11.6 g/dL (12.2-16.2)
--- NOTE | 2024-12-23 11:25 | DVHDS2 ---
Discharge Summary Date of Admission December 16, 2024 at 20:37 Date of Discharge: December 23, 2024 Labs/Diagnostic Data: Laboratory Results Test 12/23/24 10:05 12/23/24 05:14 12/20/24 05:51 12/19/24 06:32 Hemoglobin 11.6 g/dL (12.2-16.2) Hematocrit 33.7 % (36.0-46.0) Sodium Level 137 mmol/L (136-145) Potassium Level 5.3 mmol/L (3.5-5.1) Chloride Level 101 mmol/L (98-107) Carbon Dioxide Level 23 mmol/L (20-31) Anion Gap 13 (5-15) Blood Urea Nitrogen 65 mg/dL (9-23) Creatinine 11.21 mg/dL (0.550-1.02) Glomerular Filtration Rate Calc 4 mL/min (>90) BUN/Creatinine Ratio 5.8 (10.0-20.0) Serum Glucose 87 mg/dL (74-106) Calcium Level 10.0 mg/dL (8.7-10.4) White Blood Count 8.7 10^3/uL (4.4-10.8) Red Blood Count 3.32 10^6/uL (4.0-5.20) Mean Corpuscular Volume 97.0 fL (80.0-100.0) Mean Corpuscular Hemoglobin 33.5 pg (28.0-32.0) Mean Corpuscular Hemoglobin Concent 34.5 g/dL (32.0-36.0) Red Cell Distribution Width 13.4 % (11.8-14.3) Platelet Count 201 10^3/uL (140-450) Mean Platelet Volume 9.1 fL (6.9-10.8) Neutrophils (%) (Auto) 64.4 % (37.0-80.0) Lymphocytes (%) (Auto) 26.7 % (10.0-50.0) Monocytes (%) (Auto) 6.7 % (0.0-12.0) Eosinophils (%) (Auto) 1.9 % (0.0-7.0) Basophils (%) (Auto) 0.3 % (0.0-2.0) Neutrophils # (Auto) 5.6 10 ^3/uL (1.6-8.6) Lymphocytes # (Auto) 2.3 10 ^3/uL (0.4-5.4) Monocytes # (Auto) 0.6 10 ^3/uL (0-1.3) Eosinophils # (Auto) 0.2 10 ^3/uL (0-0.8) Basophils # (Auto) 0 10 ^3/uL (0-0.2) Nucleated Red Blood Cells 0.0 % Prothrombin Time 10.3 sec (9.3-11.8) Prothrombin Time INR 0.97 (0.9-1.15) Activated Partial Thromboplast Time 28.5 SEC (24.5-34.5) Hemoglobin A1c 4.9 % A1C (<5.7) Magnesium Level 2.3 mg/dL (1.6-2.6) Total Bilirubin 0.3 mg/dL (0.2-1.0) Aspartate Amino Transferase (AST) < 8 U/L (13-40) Alanine Aminotransferase (ALT) 10 U/L (7-40) Alkaline Phosphatase 94 U/L (46-116) Total Protein 8.0 g/dL (5.7-8.2) Albumin 4.9 g/dL (3.2-4.8) Triglycerides Level 78 mg/dL (< 150) Cholesterol Level 121 mg/dL (< 200) LDL Cholesterol 49 mg/dL (< 100) HDL Cholesterol 60 mg/dL (40-59) Thyroid Stimulating Hormone (TSH) 7.06 uIU/mL (0.55-4.78) Test 12/17/24 04:39 12/16/24 18:21 12/16/24 17:30 Phosphorus Level 4.2 mg/dL (2.4-5.1) Vitamin D 25-Hydroxy 39.5 ng/mL (30.0-100) Free Thyroxine (T4) Calculated 0.88 ng/dL (0.89-1.76) Beta HCG, Quantitative 1.0 mIU/mL (1.5-4.2) Parathyroid Hormone (Intact) 598.0 pg/mL (18.4-80.1) Hepatitis B Surface Antigen Negative (Negative) Troponin I High Sensitivity 43 ng/L (</=34) Free Thyroxine Index 1.8 (1.2-4.9) Thyroxine (T4) 8.4 ug/dL (4.5-12.0) Triiodothyronine (T3) Uptake 21 % (24-39) Other Laboratory Tests 12/23/24 10:05 12/23/24 05:14 12/20/24 05:51 Brief Hx & Hospital Course: Final diagnoses: Chest pain MS was ruled out Coronary artery disease was ruled out Chest pain is musculoskeletal in origin End-stage renal disease on hemodialysis Hypothyroidism, uncontrolled Hypertension Hyperparathyroidism, secondary versus tertiary 44-year-old female with a history of end-stage renal disease, hypertension, hypothyroidism came with a chief complaint of chest pain for about 1 day while she was having dialysis yesterday She is still having chest pain as if this morning, 2nd EKG was done shows no changes Troponin was slightly elevated at 43 x2 She was seen by Cardiology and was recommended to have a stress test which was abnormal and therefore she required a heart catheterization The heart catheterization was also negative for coronary artery disease She was continued on hemodialysis Her potassium was high so she was given Lokelma few times Today her potassium is much better She is having dialysis at this time and once she is done she can be discharged home Follow up as an outpatient with hemodialysis as scheduled and with her PCP as soon as possible and resume the home medications Condition at Discharge: Stable Final Diagnosis/Problems List Chest pain rule out ACS End-stage renal disease on hemodialysis Hypothyroidism, uncontrolled Hypertension Hyperparathyroidism, secondary versus tertiary Discharge Disposition: Home SNF Discharge Will this Physician continue t: No Discharge Instruct/Medications Diet: Consistent carbohydrate, Cardiac 2g Na,low cholest, Renal Activity: No Restrictions, As Tolerated Follow Up/Referral: PCP as soon as possible Hemodialysis as scheduled Medications: Resume the home medications Discharge Statement: "Patient was advised to return to the ER or call 911 if any headaches, dizziness, shortness of breath, chest pain, abdominal pain, bleeding, fevers, or worsening of medical condition. Patient was counseled about treatment plan, medications, possible side effects, patientverbalized understanding. All questions were answered to the best of my ability. This discharge took greater then 30 minutes in planning, reviewing documentation, counseling the patient, and discussing with other team members." ASSESSMENT ASSESSMENT Assessment Chest pain rule out ACS End-stage renal disease on hemodialysis Hypothyroidism, uncontrolled Hypertension Hyperparathyroidism, secondary versus tertiary Date of Service: December 23, 2024 Billing Provider: AYDEE SANTOS MD Common Visit Codes: [id number] DISCH DAY >30min AYDEE SANTOS MD December 23, 2024 11:25
[2024-12-23 13:39] VITALS: BP 136/82; PULSE 87; TEMP 36.8
== END 2024-12-23 14:09 | disposition home or self-care (01) | DRG 192 ==
LOC: ER 17:18 → EDBD 17:18 → OVERFLOW 20:37 → EAST 12-17 18:48 → TELE-EAST 12-20 07:12
PROVIDERS: ADMIT Internal Medicine Geriatric Medicine; ATTEND Internal Medicine Geriatric Medicine
PROC: 5A1D70Z Performance of Urinary Filtration, Intermittent, Less than 6 Hours Per Day (ICD-10-PCS; 2024-12-18)
PROC: B211YZZ Fluoroscopy of Multiple Coronary Arteries using Other Contrast (ICD-10-PCS; principal; 2024-12-20)
PROC: B215YZZ Fluoroscopy of Left Heart using Other Contrast (ICD-10-PCS; 2024-12-20)
PROC: 4A023N7 Measurement of Cardiac Sampling and Pressure, Left Heart, Percutaneous Approach (ICD-10-PCS; 2024-12-20)
PROC: 5A1D70Z Performance of Urinary Filtration, Intermittent, Less than 6 Hours Per Day (ICD-10-PCS; 2024-12-21)
PROC: 5A1D70Z Performance of Urinary Filtration, Intermittent, Less than 6 Hours Per Day (ICD-10-PCS; 2024-12-23)
DX: R07.89 Other chest pain (principal); I12.0 Hypertensive chronic kidney disease with stage 5 chronic kidney disease or end stage renal disease; D63.1 Anemia in chronic kidney disease; N18.6 End stage renal disease; E78.1 Pure hyperglyceridemia; E03.9 Hypothyroidism, unspecified; E87.5 Hyperkalemia; E21.1 Secondary hyperparathyroidism, not elsewhere classified; Z99.2 Dependence on renal dialysis; Z90.710 Acquired absence of both cervix and uterus; Z82.49 Family history of ischemic heart disease and other diseases of the circulatory system; Z79.899 Other long term (current) drug therapy
CPT/HCPCS: 36415; 71045; 78452; 80048; 80053; 80061; 82306; 83036; 83735; 83970; 84100; 84439; 84443; 84484; 84702; 85014; 85018; 85025; 85610; 85730; 86850; 86900; 86901; 87081; 87340; 90935; 93005; 93017; 93306; 93458; 99152; 99291; G0378; J2250; J2405; Q9967